=== PATIENT | female | born 1950 | race Two or more races ===

== ENCOUNTER → 2019-12-02 14:55 | Outpatient (BNVA) | payer MEDICARE, MEDICAID, SELFPAY | PROVIDERS: PCP Internal Medicine; Referring Provider Internal Medicine; Visit Provider Internal Medicine | DX: J44.9 Chronic obstructive pulmonary disease, unspecified (principal); Z79.899 Other long term (current) drug therapy | CPT/HCPCS: 99213 ==

== ENCOUNTER → 2020-07-19 15:43 | Outpatient (BNVA) | payer MEDICARE, MEDICAID, SELFPAY | PROVIDERS: PCP Internal Medicine; Visit Provider Internal Medicine | DX: J44.9 Chronic obstructive pulmonary disease, unspecified (principal); R06.00 Dyspnea, unspecified; Z79.899 Other long term (current) drug therapy | CPT/HCPCS: 99212 ==

== ENCOUNTER → 2020-12-13 14:41 | Outpatient (BNVA) | payer MEDICARE, MEDICAID, SELFPAY | PROVIDERS: PCP Internal Medicine; Visit Provider Internal Medicine | DX: J44.9 Chronic obstructive pulmonary disease, unspecified (principal) | CPT/HCPCS: 99212 ==

== ENCOUNTER 2021-04-26 17:47 | Outpatient (REF) | payer MEDICARE, MEDICAID, SELFPAY ==
--- NOTE | ~2021-04-26 | MR_ITS ---
EXAMINATION: MR KNEE WITHOUT CONTRAST, LEFT CLINICAL INFORMATION: 5 days severe knee pain. COMPARISON: X-ray of the the left knee September 2018. TECHNIQUE: MRI of the knee without contrast was performed using routine sequences on a high-field scanner. FINDINGS: MENISCI: Medial Meniscus: There is some subtle increased signal along the free edge of the posterior horn. Probable small surface tear of the free edge. Lateral Meniscus: There is a tiny focus of increased signal along the tibial articular surface of the body of the meniscus. Findings are suspicious but not definitive for a tear. There is also increased signal in the anterior horn extending to the femoral articular surface indicative of a meniscal tear. LIGAMENTS: Cruciate: Mucoid degeneration of the anterior cruciate ligament. PCL is intact. Collateral: Intact. EXTENSOR MECHANISM: Normal ARTICULAR CARTILAGE/BONE: Patellofemoral Compartment: Normal. Medial Compartment: Normal. Lateral Compartment: Normal. JOINT FLUID AND BURSAE: There is a mild joint effusion and a small Duncan's cyst. MR/MR knee LT wo con IMPRESSION: Probable tear along the free edge of the posterior horn of the medial meniscus. Tear of the anterior horn of the lateral meniscus and possible tear of the body. Mild joint effusion and a small Duncan's cyst. Mucoid degeneration of the anterior cruciate ligament.
== END 2021-04-26 17:48 | disposition home or self-care (01) ==
LOC: HO.MRI 17:47
PROVIDERS: PCP Registered Nurse Community Health; Visit Provider Registered Nurse Community Health
DX: M25.562 Pain in left knee (principal)
CPT/HCPCS: 73721

== ENCOUNTER 2021-05-29 08:01 | Outpatient (REF) | payer MEDICARE, MEDICAID, SELFPAY | END 2021-05-29 08:02 | disposition home or self-care (01) | LOC: HO.HOSX 08:01 | PROVIDERS: Visit Provider Physician Assistant | DX: Z13.89 Encounter for screening for other disorder (principal) ==

== ENCOUNTER 2021-08-08 07:47 | Outpatient (REF) | payer MEDICARE, MEDICAID, SELFPAY | END 2021-08-08 07:48 | disposition home or self-care (01) | LOC: HO.HOSX 07:47 | PROVIDERS: Visit Provider Physician Assistant | DX: Z13.89 Encounter for screening for other disorder (principal) ==

== ENCOUNTER → 2021-08-14 13:00 | Outpatient (BNVA) | payer MEDICARE, MEDICAID, SELFPAY | PROVIDERS: PCP Registered Nurse Community Health; Visit Provider Internal Medicine | DX: J44.9 Chronic obstructive pulmonary disease, unspecified (principal); R06.00 Dyspnea, unspecified; G47.33 Obstructive sleep apnea (adult) (pediatric); Z79.899 Other long term (current) drug therapy | CPT/HCPCS: 94010; 99212 ==

== ENCOUNTER 2021-10-04 14:20 | Outpatient (REF) | payer MEDICARE, MEDICAID, SELFPAY ==
--- NOTE | ~2021-10-04 | US_ITS ---
EXAMINATION: MM DIAGNOSTIC DIGITAL BREAST TOMOSYNTHESIS, BILATERAL US TARGETED RIGHT BREAST CLINICAL INFORMATION: Right breast mass. The lifetime risk of breast cancer based on the Tyrer-Cuzick Model is 5%. COMPARISON: Mammography: 02/01/2016 and studies dating back to 07/11/2011. TECHNIQUE: Digital breast tomosynthesis is performed in both the craniocaudal and mediolateral oblique views along with computer-aided detection (CAD). Synthesized 2-D images are generated from the tomosynthesis. Targeted right breast ultrasound. FINDINGS: The breasts are heterogeneously dense, which may obscure small masses (ACR BI-RADS breast composition Category c). There is seen to be some waxing and waning of bilateral breast densities consistent with known cysts. The palpable abnormality corresponds to a circumscribed approximately 5.1 x 4.1 x 4.6 cm mass about the medial aspect of the right breast. No suspicious grouping of microcalcifications is identified. Targeted right breast ultrasound demonstrated multiple cysts with the lesion associated with palpable area measuring approximately 3.6 x 3.9 x 3.5 cm in size. There is a smooth back-wall with increased through sound transmission. A few small echoes are seen moving within the cyst. Results are discussed with the patient at time of visit. US/US breast RT limited IMPRESSION: No mammographic evidence of malignancy. Bilateral breast cysts. ASSESSMENT: BI-RADS 2: Benign. RECOMMENDATION: Routine annual mammography screening. This patient's information was entered into a reminder system with a target due date for their next mammogram.
--- NOTE | ~2021-10-04 | MM_ITS ---
EXAMINATION: MM DIAGNOSTIC DIGITAL BREAST TOMOSYNTHESIS, BILATERAL US TARGETED BREAST, RIGHT CLINICAL INFORMATION: Right breast mass. The lifetime risk of breast cancer based on the Tyrer-Cuzick Model is 5%. COMPARISON: Mammography: 02/01/2016 and studies dating back to 07/11/2011. TECHNIQUE: Digital breast tomosynthesis is performed in both the craniocaudal and mediolateral oblique views along with computer-aided detection (CAD). Synthesized 2D images are generated from the tomosynthesis. Targeted right breast ultrasound. FINDINGS: The breasts are heterogeneously dense, which may obscure small masses (ACR BI-RADS breast composition Category c). There is seen to be some waxing and waning of bilateral breast densities consistent with known cysts. The palpable abnormality corresponds to a circumscribed approximately 5.1 x 4.1 x 4.6 cm mass about the medial aspect of the right breast. No suspicious grouping of microcalcifications is identified. Targeted right breast ultrasound demonstrated multiple cysts with the lesion associated with the palpable area measuring approximately 3.6 x 3.9 x 3.5 cm in size. There is a smooth back wall with increased through sound transmission. A few small echoes are seen moving within the cyst. Results are discussed with the patient at time of visit. MM/MM tomosynthesis diagnostic BI IMPRESSION: No mammographic evidence of malignancy. Bilateral breast cysts. ASSESSMENT: BI-RADS 2: Benign. RECOMMENDATION: Routine annual mammography screening. This patient's information was entered into a reminder system with a target due date for their next mammogram.
== END 2021-10-04 14:21 | disposition home or self-care (01) ==
LOC: HO.MAMMO 14:20
PROVIDERS: PCP Internal Medicine; Visit Provider Internal Medicine
DX: N63.15 Unspecified lump in the right breast, overlapping quadrants (principal); Z80.3 Family history of malignant neoplasm of breast
CPT/HCPCS: 76642; 77062; 77066

== ENCOUNTER 2022-01-15 11:26 | Outpatient (REF) | payer MEDICARE, MEDICAID, SELFPAY ==
--- NOTE | ~2022-01-15 | XR_ITS ---
EXAMINATION: XR KNEE, RIGHT CLINICAL INFORMATION: Pain COMPARISON: None TECHNIQUE: Four views of the right knee. FINDINGS: Bones and soft tissues are normal. No fracture or joint effusion. Alignment is anatomic. Joint spaces are well maintained. No abnormal soft tissue calcification. XR/XR knee RT 4V IMPRESSION: Normal right knee.
== END 2022-01-15 11:27 | disposition home or self-care (01) ==
LOC: HO.XRAY 11:26
PROVIDERS: PCP Internal Medicine; Visit Provider Emergency Medicine
DX: M25.561 Pain in right knee (principal)
CPT/HCPCS: 73564

== ENCOUNTER → 2022-05-22 13:42 | Outpatient (BNVA) | payer MEDICARE, MEDICAID, SELFPAY | PROVIDERS: PCP Internal Medicine; Visit Provider Internal Medicine | DX: J44.9 Chronic obstructive pulmonary disease, unspecified (principal) | CPT/HCPCS: 99212 ==

== ENCOUNTER 2022-11-27 11:34 | Outpatient (REF) | payer MEDICARE, MEDICAID, SELFPAY | END 2022-11-27 11:35 | disposition home or self-care (01) | LOC: HO.HHCX 11:34 | PROVIDERS: Visit Provider Nurse Practitioner Family | DX: Z13.89 Encounter for screening for other disorder (principal) | CPT/HCPCS: 73630 ==

== ENCOUNTER 2022-11-27 11:56 | Outpatient (REF) | payer MEDICARE, MEDICAID, SELFPAY | END 2022-11-27 11:57 | disposition home or self-care (01) | LOC: HO.HHCL 11:56 | PROVIDERS: Visit Provider Nurse Practitioner Family | DX: M79.671 Pain in right foot (principal) | CPT/HCPCS: 36415; 73630; 84550 ==

== ENCOUNTER 2022-11-28 15:27 | Outpatient (AMB) | payer MEDICARE, MEDICAID, SELFPAY ==
[2022-11-28 15:37] VITALS: BP 130/62; PULSE 75; O2SAT 95; BMI 34.6
--- NOTE | 2022-11-28 15:37 | MHC.OFFVIS ---
Intake Vital Signs 11/28/22 15:37 Height 5 ft Weight 177 lb BMI 34.6 BP 130/62 Blood Pressure Location Lt brachial Position Sitting Pulse 75 Pulse Source Pulse Oximeter Pulse Oximetry (%) 95 Oxygen Delivery Method Room Air Intake Visit Reasons: COPD Intake Note: pt is here for follow up and states she is feeling good, put on prednisone today for gout of foot Marketing Outreach Coordinator Required: No Allergies No Known Allergies [No Known Allergies*] Allergy (Verified 11/28/22 16:03) Medication List - Last Reconciled 11/28/22 by Ginny Carranza MD albuterol sulfate 90 mcg/actuation 2 puffs PO Q6H PRN albuterol sulfate mg inhalation Q4H PRN atorvastatin 20 mg PO BEDTIME celecoxib 200 mg PO DAILY PRN diclofenac sodium 50 mg PO BID diclofenac sodium 1% grams topical diltiazem HCl 300 mg PO DAILY fluoxetine 20 mg PO QAM fluticasone propion-salmeterol 250-50 mcg/dose (Advair Diskus) 1 inh inhalation BID 30 days ibuprofen 600 mg PO TID PRN Incruse Ellipta 62.5 mcg/actuation (umeclidinium) 1 inh inhalation DAILY NS levothyroxine 25 mcg PO DAILY loratadine 10 mg PO DAILY PRN losartan 50 mg PO DAILY meloxicam 15 mg PO QAM methocarbamol 750 mg PO Q12H PRN quetiapine 50 mg PO BEDTIME Do you need a note to return to daycare/school/sports/work: No HPI COPD HPI Details THIS 72 YEARS OLD VERY PLEASANT FEMALE, IS HERE FOR FOLLOW-UP AFTER 6 MONTHS. SHE HAS MODERATELY SEVERE CHRONIC OBSTRUCTIVE PULMONARY DISEASE. SHE NEVER SMOKED IN HER LIFE. DOING VERY WELL ON HER CURRENT REGIMEN. SHE DENIES ANY EPISODES OF COUGH OR WHEEZING. SHE DOES GET SHORT OF BREATH IF SHE CLIMBS STAIRS OR WALKS UP HILL. LUCKILY SHE HAS HAD NO ACUTE EXACERBATION IN THE LAST 6 MONTHS [facility] Medical History Dyspnea on exertion COPD (chronic obstructive pulmonary disease) Social History Patient Tobacco Use Status: Never used Tobacco Review of Systems Const All systems reviewed & are unremarkable except as noted in HPI and below Eyes Reports no additional complaints ENT Reports no additional complaints Card Denies chest pain, Denies irregular heart rhythm and Denies leg edema Resp Reports as per HPI GI Reports no additional complaints Reports no additional complaints Musc Reports no additional complaints Skin/Breast Reports system reviewed and no additional complaints, except as documented Neuro Reports no additional complaints Psych Reports no additional complaints Physical Exam Vital Signs: Last Vital Signs Pulse 75 11/28/22 15:37 BP 130/62 11/28/22 15:37 Pulse Ox 95 11/28/22 15:37 Oxygen Delivery Method Room Air 11/28/22 15:37 BMI result Body Mass Index 34.6 Const General: healthy appearing, comfortable, no acute distress, alert and awake Orientation/consciousness: patient oriented x3 HEENT Head: Yes normal to inspection General nose exam: No nasal polyps present and No nasal discharge present Face and sinus: Yes sinuses nontender Mouth: oropharynx normal Throat: Yes posterior oropharynx normal Eyes General: appearance normal, both eyes and all related structures Neck Neck: Yes normal visual inspection, Yes no lymphadenopathy, Yes trachea midline and Yes no JVD Thyroid: Thyroid normal Chest Chest palpation & inspection: normal inspection of the chest, normal palpation of entire chest wall and no tenderness Resp Other: PERCUSSION NOTE RESONANT, BREATH SOUNDS ARE DISTANT WITH PROLONGED EXPIRATORY PHASE. CLEAR ON AUSCULTATION, NO WHEEZES OR RHONCHI ARE HEARD. Cardio Palpation: normal PMI Rate: regular rate Rhythm: regular rhythm Heart sounds: no gallops and no murmurs Peripheral pulses: Peripheral pulses 2+ throughout GI Palpation (GI): Soft to palpation, nontender, No hepatosplenomegaly present and no masses Auscultation: normal bowel sounds Back/Spine/Pelvis Thoracic/Lumbar Spine: thoracic and lumbar spine normal to inspection Skin General skin exam: no rashes or lesions noted Neuro General: patient oriented x3 and no focal motor deficits Cranial nerves: Yes CN's II-XII intact bilaterally Extrem General: Yes normal to inspection, Yes no clubbing, cyanosis or edema and Yes no calf tenderness Psych Appearance: grossly normal Speech and movement: Normal speech and movement present Assessment & Plan Assessment & Plan (1) COPD (chronic obstructive pulmonary disease): Comment: SHE DOES HAVE MODERATELY SEVERE CHRONIC OBSTRUCTIVE PULMONARY DISEASE. HAS REMAINED STABLE AND CONTROLLED WITH THE CURRENT MEDS. ADVISED TO CONTINUE: [place] : INCRUSE Ellipta 1 INHALATION DAILY. ADVAIR 250-51 INHALATION B.I.D. ALBUTEROL HFA 2 PUFFS Q 4-6 HOURS P.R.N.. SHE WAS EDUCATED TO AVOID USING THE ALBUTEROL INHALER TOO FREQUENTLY. USE ONLY IF SHE STARTS HAVING ATTACK OF WHEEZING AT REST. RV 6 MONTHS Code(s): J44.9 - Chronic obstructive pulmonary disease, unspecified (2) Dyspnea on exertion: Comment: HER SHORTNESS OF BREATH ON EXERTION IS MILD AND RELATED TO COPD. Code(s): R06.00 - Dyspnea, unspecified Coding Level of Care Code Est Pt Level 3 (67954) Diagnoses COPD (chronic obstructive pulmonary disease) J44.9 Dyspnea on exertion R06.00
== END 2022-11-28 15:59 | disposition home or self-care (01) ==
PROVIDERS: PCP Internal Medicine; Visit Provider Internal Medicine
DX: J44.9 Chronic obstructive pulmonary disease, unspecified (principal); R06.00 Dyspnea, unspecified
CPT/HCPCS: 99213

== ENCOUNTER → 2022-11-28 15:27 | Outpatient (BNVA) | payer MEDICARE, MEDICAID, SELFPAY | PROVIDERS: PCP Internal Medicine; Visit Provider Internal Medicine | DX: J44.9 Chronic obstructive pulmonary disease, unspecified (principal); R06.00 Dyspnea, unspecified | CPT/HCPCS: 99212 ==

== ENCOUNTER 2023-04-11 11:09 | Outpatient (REF) | payer MEDICARE, MEDICAID, SELFPAY ==
[2023-04-11 13:31] LABS: Uric Acid 6.3 mg/dL (2.4-5.7)
== END 2023-04-11 11:10 | disposition home or self-care (01) ==
LOC: HO.HHCL 11:09
PROVIDERS: Visit Provider Internal Medicine
DX: M10.071 Idiopathic gout, right ankle and foot (principal)
CPT/HCPCS: 36415; 84550

== ENCOUNTER 2023-04-12 13:50 | Outpatient (REF) | payer MEDICARE, MEDICAID, SELFPAY ==
--- NOTE | ~2023-04-12 | XR_ITS ---
EXAMINATION: XR LUMBOSACRAL SPINE WITH OBLIQUES CLINICAL INFORMATION: Low back pain with right sciatica. Denies injury. COMPARISON: None available. TECHNIQUE: AP, both oblique, and lateral views of the lumbar spine. Lateral view of the lumbosacral junction. FINDINGS: There is normal lumbar lordosis. The vertebral heights, alignment and disc heights are normal. There is loss of L4-L5 and L5/S1 disc heights with mild spondylosis. No visible acute fracture, dislocation or lytic process seen. The SI joints are symmetrical and normal. On oblique views there is no pars defect or listhesis. The soft tissues are normal. XR/XR lumbar spine 4V min IMPRESSION: Mild degenerative disc changes L4-L5 and L5-S1 disc levels. No visible acute fracture, dislocation or subluxation seen.
== END 2023-04-12 13:51 | disposition home or self-care (01) ==
LOC: HO.HHCX 13:50
PROVIDERS: Visit Provider Internal Medicine Geriatric Medicine
DX: M54.41 Lumbago with sciatica, right side (principal)
CPT/HCPCS: 72110

== ENCOUNTER 2023-06-25 15:31 | Outpatient (AMB) | payer MEDICARE, MEDICAID, SELFPAY ==
--- NOTE | 2023-06-25 15:49 | A.OFFVIS_ITS ---
Vital Signs 06/25/23 15:50 Height 5 ft Weight 180 lb BMI 35.2 BP 134/62 Blood Pressure Location Lt brachial Position Sitting Pulse 88 Pulse Source Pulse Oximeter Pulse Oximetry (%) 95 Oxygen Delivery Method Room Air Intake Visit Reasons: copd Intake Note: pt is here for follow up and states she does get short of breath with walking and climbing stairs. She needs a letter for housing requesting a 1st floor due to copd and difficulty climbing the stairs. 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 Allergies No Known Allergies [No Known Allergies*] Allergy (Verified 06/25/23 16:22) Medication List - Last Reconciled 06/25/23 by Ginny Carranza MD albuterol sulfate 90 mcg/actuation 2 puffs PO Q6H PRN albuterol sulfate mg inhalation Q4H PRN atorvastatin 20 mg PO BEDTIME celecoxib 200 mg PO DAILY PRN diclofenac sodium 50 mg PO BID diclofenac sodium 1% grams topical diltiazem HCl CD 300 mg PO DAILY fluoxetine 20 mg PO QAM fluticasone propion-salmeterol 250-50 mcg/dose (Advair Diskus) 1 inh inhalation BID 30 days ibuprofen 600 mg PO TID PRN Incruse Ellipta 62.5 mcg/actuation (umeclidinium) 1 inh inhalation DAILY NS levothyroxine 25 mcg PO DAILY loratadine 10 mg PO DAILY PRN losartan 50 mg PO DAILY meloxicam 15 mg PO QAM methocarbamol 750 mg PO Q12H PRN quetiapine 50 mg PO BEDTIME Do you need a note to return to daycare/school/sports/work: No HPI HPI copd: Details: This 72 years old very pleasant female, is here for. 6 months follow-up Her main complaint is getting short of breath on minimal exertion, especially if she has to climb stairs. She also has mild intermittent cough without much expectoration . She denies any wheezing attacks. She is moderately obese and also has generalized arthritis, hypertension, hyperlipidemia. She is nonsmoker. [facility] Medical History Dyspnea on exertion COPD (chronic obstructive pulmonary disease) Social History Patient Tobacco Use Status: Never used Tobacco Review of Systems Const All systems reviewed & are unremarkable except as noted in HPI and below Eyes Reports no additional complaints ENT Reports no additional complaints Card Denies chest pain, Denies irregular heart rhythm and Denies leg edema Resp Reports as per HPI GI Reports no additional complaints Reports no additional complaints Musc Reports no additional complaints Skin/Breast Reports system reviewed and no additional complaints, except as documented Neuro Reports no additional complaints Psych Reports no additional complaints Physical Exam Vital Signs: Last Vital Signs Pulse 88 06/25/23 15:50 BP 134/62 06/25/23 15:50 Pulse Ox 95 06/25/23 15:50 Oxygen Delivery Method Room Air 06/25/23 15:50 BMI result Body Mass Index 35.2 Const General: healthy appearing, comfortable, no acute distress, alert and awake Orientation/consciousness: patient oriented x3 HEENT Head: Yes normal to inspection General nose exam: No nasal polyps present and No nasal discharge present Face and sinus: Yes sinuses nontender Mouth: oropharynx normal Throat: Yes posterior oropharynx normal Eyes General: appearance normal, both eyes and all related structures Neck Neck: Yes normal visual inspection, Yes no lymphadenopathy, Yes trachea midline and Yes no JVD Thyroid: Thyroid normal Chest Chest palpation & inspection: normal inspection of the chest, normal palpation of entire chest wall and no tenderness Resp Other: PERCUSSION NOTE RESONANT, BREATH SOUNDS ARE DISTANT WITH PROLONGED EXPIRATORY PHASE. CLEAR ON AUSCULTATION, NO WHEEZES OR RHONCHI ARE HEARD. Cardio Palpation: normal PMI Rate: regular rate Rhythm: regular rhythm Heart sounds: no gallops and no murmurs Peripheral pulses: Peripheral pulses 2+ throughout GI Palpation (GI): Soft to palpation, nontender, No hepatosplenomegaly present and no masses Auscultation: normal bowel sounds Back/Spine/Pelvis Thoracic/Lumbar Spine: thoracic and lumbar spine normal to inspection Skin General skin exam: no rashes or lesions noted Neuro General: patient oriented x3 and no focal motor deficits Cranial nerves: Yes CN's II-XII intact bilaterally Extrem General: Yes normal to inspection, Yes no clubbing, cyanosis or edema and Yes no calf tenderness Psych Appearance: grossly normal Speech and movement: Normal speech and movement present Assessment & Plan Assessment & Plan (1) COPD (chronic obstructive pulmonary disease): Comment: SHE DOES HAVE MODERATELY SEVERE CHRONIC OBSTRUCTIVE PULMONARY DISEASE. HAS REMAINED STABLE AND CONTROLLED WITH THE CURRENT MEDS. ADVISED TO CONTINUE PRESENT MEDICAL REGIMEN. Code(s): J44.9 - Chronic obstructive pulmonary disease, unspecified Category: Medical Plan: [place] : INCRUSE Ellipta 1 INHALATION DAILY. ADVAIR 250-51 INHALATION B.I.D. ALBUTEROL HFA 2 PUFFS Q 4-6 HOURS P.R.N.. SHE WAS EDUCATED TO AVOID USING THE ALBUTEROL INHALER TOO FREQUENTLY. USE ONLY IF SHE STARTS HAVING ATTACK OF WHEEZING AT REST. RV 6 MONTHS (2) Dyspnea on exertion: Comment: HER SHORTNESS OF BREATH ON EXERTION IS MILD AND RELATED TO COPD WELL OBESITY Code(s): R06.00 - Dyspnea, unspecified Category: Medical Plan: EXPLAINED ADVISED TO LOSE SOME WEIGHT . WHICH MAY BE DIFFICULT FOR HER DO DEEP BREATHING EXERCISES 2 TO 3 TIMES A DAY. NOTE GIVEN FOR THE HOUSING AUTHORITY THAT SHE SHOULD GET AN APARTMENT ON THE LEVEL GROUND. Coding Level of Care Code Est Pt Level 4 (19065) Diagnoses COPD (chronic obstructive pulmonary disease) J44.9 Dyspnea on exertion R06.00
[2023-06-25 15:50] VITALS: BP 134/62; PULSE 88; O2SAT 95; BMI 35.2
== END 2023-06-25 16:18 | disposition home or self-care (01) ==
PROVIDERS: PCP Internal Medicine; Visit Provider Internal Medicine
DX: J44.9 Chronic obstructive pulmonary disease, unspecified (principal); R06.00 Dyspnea, unspecified
CPT/HCPCS: 99214

== ENCOUNTER → 2023-06-25 15:31 | Outpatient (BNVA) | payer MEDICARE, MEDICAID, SELFPAY | PROVIDERS: PCP Internal Medicine; Visit Provider Internal Medicine | DX: J44.9 Chronic obstructive pulmonary disease, unspecified (principal); R06.00 Dyspnea, unspecified; Z79.899 Other long term (current) drug therapy | CPT/HCPCS: 99212 ==

== ENCOUNTER 2023-10-23 13:11 | Outpatient (REF) | payer MEDICARE, MEDICAID, SELFPAY ==
[2023-10-23 13:52] LABS: Leukocytes Stool Qualitative NEGATIVE (NEGATIVE)
[2023-10-28 14:38] LABS: Fecal Fat Qualitative Normal (Normal)
== END 2023-10-23 13:12 | disposition home or self-care (01) ==
LOC: HO.LNP 13:11
PROVIDERS: Visit Provider Internal Medicine
DX: R19.7 Diarrhea, unspecified (principal)
CPT/HCPCS: 82705; 87338; 89055

== ENCOUNTER → 2023-11-06 15:00 | Outpatient (REF) | payer MEDICARE, MEDICAID, SELFPAY ==
--- NOTE | 2023-11-06 15:03 | CA_ITS ---
Transthoracic Echocardiogram Patient (Last, First, Middle): Jaqui Segal, Gender: Female Date of : 1950 Age: 73 Procedure Date: 11/06/2023 Procedure Type: Transthoracic Echocardiogram Location: OP Height: 157.48 cm Weight: 81.65 kg BSA: 1.83 m2 Heart Rate: 74 bpm BP: 128 / 70 mmHg Insurance Job Titles: SB Referring MD: Polly Toribio MD Climatology Teacher: Fabrizio Baptiste MD Symptoms: ESPINOSA R06.09 Study Quality: Fair ECG Rhythm: Sinus Conclusions: - 1. Hyperdynamic LV ejection fraction greater than 70% with impaired relaxation filling pattern 2. Mild aortic regurgitation 3. Normal measured RV systolic pressure 4. Mildly dilated ascending aorta at 4.2 cm 5. No gross pericardial effusion Findings Left Ventricle Normal left ventricular cavity size. There is normal left ventricular wall thickness. The left ventricular systolic function is hyperdynamic. The visually estimated ejection fraction is >70%. Spectral Doppler is indicative of an impaired relaxation filling pattern. Right Ventricle Normal right ventricular cavity size and systolic function. Atria The left atrium is normal in size. Interatrial shunt cannot be excluded. The right atrium is normal in size. Aortic Valve There is mild calcification of the aortic valve. There is no aortic valve stenosis. There is mild aortic valve regurgitation. Mitral Valve There is mild anterior and posterior mitral leaflet thickening. There is trace mitral valve regurgitation. There is no mitral valve stenosis. Pulmonic Valve The pulmonic valve was not well visualized. Tricuspid Valve Likely normal tricuspid valve structure and function. There is trace tricuspid valve regurgitation. The right ventricular systolic pressure is normal. The right ventricular systolic pressure is 25 mmHg. Normal right atrial pressure. There is no evidence of pulmonary hypertension. Great Vessels The pulmonary artery was not well visualized. There is mild dilatation of the ascending aorta measuring 4.20 cm. There is no evidence of plaque in the aorta. Venous The inferior vena cava is normal in size and collapses greater than 50% with inspiration. Pericardium/Pleural There is no evidence of pericardial effusion. Prior Study Comparison Changes noted compared to prior study dated: 06/13/2017. RV systolic pressure is measured to be within normal limits. Ascending aorta is mildly dilated on this study Measurements 2D Linear Measurements IVSd: 0.82 0.6-0.9/0.6-1.0 cm LVIDd: 4.81 3.9-5.3/4.2-5.9 cm LVIDd Index: 2.63 2.4-3.2/2.2-3.1 cm/m2 LVIDs: 2.74 2.0-3.6 cm LVPWd: 0.82 0.7-1.1 cm LA Diam: 4.40 2.7-3.8/3.0-4.0 cm LAIDs Index: 2.40 1.5-2.3 cm/m2 LV Mass: 163.07 67-162/88-224 g LV Mass Index: 89.11 43-95/49-115 g/m2 LVOT Diam: 1.90 3.0+(-)1.3 cm 2D Systolic Function EF 4C: 69.30 >55% EF 2C: 80.70 >55% EF BiP: 77.10 >55% Mitral Valve MV Pk E: 0.93 MV PK A: 1.06 MV Decel Time: 189.00 E/A: 0.90 E'Lateral: 7.29 E'Medial: 5.23 E/E' Med: 17.70 E/E' Lat: 12.70 PHT: 55.00 MVA PHT: 4.00 Decel [place]: 4.89 Aortic Valve AoV Pk Dexter: 1.98 AoV Mn Dexter: 1.32 AoV VTI: 0.36 AoV Pk Grad: 16.00 Aov Mn Grad: 9.00 DOMENICO Cont.VTI: 2.17 LVOT LVOT Pk Dexter: 1.55 LVOT Mn Dexter: 0.96 LVOT VTI: 0.28 LVOT Pk Grad: 10.00 LVOT Mn Grad: 5.00 LVOT Diam: 1.90 LVOT Area: 2.84 Diastolic Function MV Pk E: 0.93 MV Pk A: 1.06 E/A: 0.90 E'Medial: 5.23 E/E' Med: 17.70 E' Laterial: 7.29 E/E' Lat: 12.70 Right Ventricle TAPSE (mm): 26.40 TVS' Dexter: 17.50 Tricuspid Valve TR Pk Dexter: 2.37 TR Pk Grad: 22.00 RA Press: 3.00 RVSP: 25.00 Great Vessels Aorta Sinus of Valsalva: 3.10 2.0-3.5 cm Ao Asc: 4.20 2.1-3.4 cm Pulmonary Valve PV Pk Dexter: 1.43 PV Min Dexter: 0.98 Peak PV Grad: 8.00 PV Mn Grad: 5.00 Updated in Other Vendor System with Status of Final Fabrizio Baptiste MD electronically signed on 11/06/2023 6:29:46 PM with status of Final
== END ==
LOC: HO.CARD 15:00
PROVIDERS: PCP Internal Medicine; Visit Provider Internal Medicine
DX: R06.09 Other forms of dyspnea (principal)
CPT/HCPCS: 93306

== ENCOUNTER → 2023-11-06 15:03 | Outpatient (BNV) | payer MEDICARE, MEDICAID, SELFPAY | PROVIDERS: PCP Internal Medicine; Visit Provider Internal Medicine Cardiovascular Disease | DX: I35.1 Nonrheumatic aortic (valve) insufficiency (principal) | CPT/HCPCS: 93306 ==

== ENCOUNTER 2023-12-30 15:25 | Outpatient (AMB) | payer MEDICARE, MEDICAID, SELFPAY ==
--- NOTE | 2023-12-30 15:32 | A.OFFVIS_ITS ---
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 Name: Geena Marley Allergies No Known Allergies [No Known Allergies*] Allergy (Verified 12/30/23 15:43) Medication List - Last Reconciled 12/30/23 by Ginny Carranza MD albuterol sulfate 90 mcg/actuation 2 puffs PO Q6H PRN albuterol sulfate mg inhalation Q4H PRN atorvastatin 20 mg PO BEDTIME celecoxib 200 mg PO DAILY PRN diclofenac sodium 50 mg PO BID diclofenac sodium 1% grams topical diltiazem HCl CD 300 mg PO DAILY fluoxetine 20 mg PO QAM fluticasone propion-salmeterol 250-50 mcg/dose (Advair Diskus) 1 inh inhalation BID 30 days ibuprofen 600 mg PO TID PRN Incruse Ellipta 62.5 mcg/actuation (umeclidinium) 1 inh inhalation DAILY NS levothyroxine 25 mcg PO DAILY loratadine 10 mg PO DAILY PRN losartan 50 mg PO DAILY meloxicam 15 mg PO QAM methocarbamol 750 mg PO Q12H PRN quetiapine 50 mg PO BEDTIME Do you need a note to return to daycare/school/sports/work: No HPI HPI COPD: Details: This 73 years old female is here for 6 months follow-up for her COPD. She has remained very stable without any acute infection or exacerbation. Uses her inhalers regularly and hardly needs to use albuterol. She is nonsmoker for the last 8 years. [facility] Medical History Dyspnea on exertion COPD (chronic obstructive pulmonary disease) Social History Patient Tobacco Use Status: Never used Tobacco Review of Systems Const All systems reviewed & are unremarkable except as noted in HPI and below Eyes Reports no additional complaints ENT Reports no additional complaints Card Denies chest pain, Denies irregular heart rhythm and Denies leg edema Resp Reports as per HPI GI Reports no additional complaints Reports no additional complaints Musc Reports no additional complaints Skin/Breast Reports system reviewed and no additional complaints, except as documented Neuro Reports no additional complaints Psych Reports no additional complaints Physical Exam Const General: healthy appearing, comfortable, no acute distress, alert and awake Orientation/consciousness: patient oriented x3 HEENT Head: Yes normal to inspection General nose exam: No nasal polyps present and No nasal discharge present Face and sinus: Yes sinuses nontender Mouth: oropharynx normal Throat: Yes posterior oropharynx normal Eyes General: appearance normal, both eyes and all related structures Neck Neck: Yes normal visual inspection, Yes no lymphadenopathy, Yes trachea midline and Yes no JVD Thyroid: Thyroid normal Chest Chest palpation & inspection: normal inspection of the chest, normal palpation of entire chest wall and no tenderness Resp Other: PERCUSSION NOTE RESONANT, BREATH SOUNDS ARE DISTANT WITH PROLONGED EXPIRATORY PHASE. CLEAR ON AUSCULTATION, NO WHEEZES OR RHONCHI ARE HEARD. Cardio Palpation: normal PMI Rate: regular rate Rhythm: regular rhythm Heart sounds: no gallops and no murmurs Peripheral pulses: Peripheral pulses 2+ throughout GI Palpation (GI): Soft to palpation, nontender, No hepatosplenomegaly present and no masses Auscultation: normal bowel sounds Back/Spine/Pelvis Thoracic/Lumbar Spine: thoracic and lumbar spine normal to inspection Skin General skin exam: no rashes or lesions noted Neuro General: patient oriented x3 and no focal motor deficits Cranial nerves: Yes CN's II-XII intact bilaterally Extrem General: Yes normal to inspection, Yes no clubbing, cyanosis or edema and Yes no calf tenderness Psych Appearance: grossly normal Speech and movement: Normal speech and movement present Assessment & Plan Assessment & Plan (1) COPD (chronic obstructive pulmonary disease): Comment: SHE DOES HAVE MODERATELY SEVERE CHRONIC OBSTRUCTIVE PULMONARY DISEASE. HAS REMAINED STABLE AND CONTROLLED WITH THE CURRENT MEDS. ADVISED TO CONTINUE PRESENT MEDICAL REGIMEN. Code(s): J44.9 - Chronic obstructive pulmonary disease, unspecified Category: Medical Plan: Continue to use Advair Diskus 250-51 inhalation b.i.d. Incruse Ellipta 1 inhalation daily Albuterol HFA 2 puffs Q 6 hours p.r.n. Coding Level of Care Code Est Pt Level 3 (30345) Diagnoses COPD (chronic obstructive pulmonary disease) J44.9
[2023-12-30 15:34] VITALS: BP 122/62; PULSE 73; O2SAT 93; BMI 34.4
== END 2023-12-30 15:48 | disposition home or self-care (01) ==
PROVIDERS: PCP Internal Medicine; Visit Provider Internal Medicine
DX: J44.9 Chronic obstructive pulmonary disease, unspecified (principal)
CPT/HCPCS: 99213

== ENCOUNTER → 2023-12-30 15:25 | Outpatient (BNVA) | payer MEDICARE, MEDICAID, SELFPAY | PROVIDERS: PCP Internal Medicine; Visit Provider Internal Medicine | DX: J44.9 Chronic obstructive pulmonary disease, unspecified (principal) | CPT/HCPCS: 99212 ==

== ENCOUNTER 2024-09-08 15:18 | Outpatient (AMB) | payer MEDICARE, MEDICAID, SELFPAY ==
--- NOTE | 2024-09-08 15:38 | A.OFFVIS_ITS ---
Vital Signs 09/08/24 15:39 Height 5 ft Weight 175 lb BMI 34.2 BP 147/72 H Blood Pressure Location Lt brachial Position Sitting Pulse 71 Pulse Source Pulse Oximeter Pulse Oximetry (%) 91 L Oxygen Delivery Method Room Air Intake Visit Reasons: copd Intake Note: pt is here for follow up and states she is feeling good, Senior Financial Reporting Accountant Required: Yes Senior Financial Reporting Accountant Services: Senior Financial Reporting Accountant Present Senior Financial Reporting Accountant Name: pawel (OA) Allergies No Known Allergies (No Known Allergies*) Allergy (Verified 09/08/24 15:53) Medication List - Last Reconciled 09/08/24 by Ginny Carranza MD albuterol sulfate 90 mcg/actuation 2 puffs PO Q6H PRN albuterol sulfate mg inhalation Q4H PRN atorvastatin 20 mg PO BEDTIME celecoxib 200 mg PO DAILY PRN diclofenac sodium 50 mg PO BID diclofenac sodium 1% grams topical diltiazem HCl CD 300 mg PO DAILY fluoxetine 20 mg PO QAM fluticasone propion-salmeterol 250-50 mcg/dose (Advair Diskus) 1 inh inhalation BID 30 days ibuprofen 600 mg PO TID PRN Incruse Ellipta 62.5 mcg/actuation (umeclidinium) 1 inh inhalation DAILY NS levothyroxine 25 mcg PO DAILY loratadine 10 mg PO DAILY PRN losartan 50 mg PO DAILY meloxicam 15 mg PO QAM methocarbamol 750 mg PO Q12H PRN quetiapine 50 mg PO BEDTIME Do you need a note to return to daycare/school/sports/work: No HPI HPI copd: Details: THIS 73 YEARS OLD 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 SHE STATES THAT SHE HAS BEEN DOING VERY WELL EXCEPT FOR MILD INTERMITTENT COUGH. SHE HAS HAD NO MAJOR RESPIRATORY INFECTION. CONTINUES TO USE HER INHALERS REGULARLY. ONLY MILD SHORTNESS OF BREATH IF SHE CLIMBS STAIRS BUT ON THE LEVEL GROUND SHE CAN WALK WITHOUT ANY PROBLEM. [facility] Medical History Dyspnea on exertion COPD (chronic obstructive pulmonary disease) Social History Patient Tobacco Use Status: Never used Tobacco Review of Systems Const All systems reviewed & are unremarkable except as noted in HPI and below Eyes Reports no additional complaints ENT Reports no additional complaints Card Denies chest pain, Denies irregular heart rhythm and Denies leg edema Resp Reports as per HPI GI Reports no additional complaints Reports no additional complaints Musc Reports no additional complaints Skin/Breast Reports system reviewed and no additional complaints, except as documented Neuro Reports no additional complaints Psych Reports no additional complaints Physical Exam Vital Signs: Last Vital Signs Pulse 71 09/08/24 15:39 BP 147/72 H 09/08/24 15:39 Pulse Ox 91 L 09/08/24 15:39 Oxygen Delivery Method Room Air 09/08/24 15:39 BMI result Body Mass Index 34.2 Const General: healthy appearing, comfortable, no acute distress, alert and awake Orientation/consciousness: patient oriented x3 HEENT Head: Yes normal to inspection General nose exam: No nasal polyps present and No nasal discharge present Face and sinus: Yes sinuses nontender Mouth: oropharynx normal Throat: Yes posterior oropharynx normal Eyes General: appearance normal, both eyes and all related structures Neck Neck: Yes normal visual inspection, Yes no lymphadenopathy, Yes trachea midline and Yes no JVD Thyroid: Thyroid normal Chest Chest palpation & inspection: normal inspection of the chest, normal palpation of entire chest wall and no tenderness Resp Other: PERCUSSION NOTE RESONANT, BREATH SOUNDS ARE DISTANT WITH PROLONGED EXPIRATORY PHASE. CLEAR ON AUSCULTATION, NO WHEEZES OR RHONCHI ARE HEARD. Cardio Palpation: normal PMI Rate: regular rate Rhythm: regular rhythm Heart sounds: no gallops and no murmurs Peripheral pulses: Peripheral pulses 2+ throughout GI Palpation (GI): Soft to palpation, nontender, No hepatosplenomegaly present and no masses Auscultation: normal bowel sounds Back/Spine/Pelvis Thoracic/Lumbar Spine: thoracic and lumbar spine normal to inspection Skin General skin exam: no rashes or lesions noted Neuro General: patient oriented x3 and no focal motor deficits Cranial nerves: Yes CN's II-XII intact bilaterally Extrem General: Yes normal to inspection, Yes no clubbing, cyanosis or edema and Yes no calf tenderness Psych Appearance: grossly normal Speech and movement: Normal speech and movement present Assessment & Plan Assessment & Plan (1) COPD (chronic obstructive pulmonary disease): Comment: SHE DOES HAVE MODERATELY SEVERE CHRONIC OBSTRUCTIVE PULMONARY DISEASE. HAS REMAINED STABLE AND CONTROLLED WITH THE CURRENT MEDS. Code(s): J44.9 - Chronic obstructive pulmonary disease, unspecified Category: Medical Plan: ADVISED TO CONTINUE USING: INCRUSE ELLIPTA 1 INHALATION DAILY ADVAIR DISKUS 250-50 1 INHALATION B.I.D. ALBUTEROL HFA 2 PUFFS Q 6 HOURS ONLY P.R.N. Coding Level of Care Code Est Pt Level 3 (54024) Diagnoses COPD (chronic obstructive pulmonary disease) J44.9
[2024-09-08 15:39] VITALS: BP 147/72; PULSE 71; O2SAT 91; BMI 34.2
--- OUTSIDE RECORDS SUMMARY | 2024-09-08 16:13 | XMS_ITS | Clinical Summary ---
Author Organization [facility] Address [id number] [place] [id number] Care Team Providers Care Catshovel Driver Name Role Phone Unavailable Primary Care Provider Unavailabl e Social History Tobacco Use Types Packs/Day Years Used Date Smoking Tobacco: Never Assessed Comments Unknown Sex and Gender Information Value Date Recorded Sex Assigned at Not on file Legal Sex Female 6:13 PM EST Gender Identity Not on file Sexual Orientation Not on file Plan of Treatment Health Maintenance Due Date Last Done Comments Breast Cancer Screening 1950 DTaP,Tdap,and Td Vaccines (1 - Tdap) 11/04/1971 Pneumococcal Vaccine: 50+ Ye ars (1 of 1 - PCV) 2002 Zoster Vaccines (1 of 2) 2002 COVID-19 Vaccine (1 - 2023-2 5 season) 2023 Depression Screening 02/19/2024 Influenza Vaccine (#1) 2024 RSV Immunization Adult Patie nts (1 - 1-dose 75+ series) 11/04/2027 HIB Vaccines Aged Out No longer eligi ble based on patient's age to complete this topic HPV Vaccines Aged Out No longer eligi ble based on patient's age to complete this topic Hepatitis A Vaccines Aged Out No long er eligible based on patient's age to complete this topic Hepatitis B Vaccines Aged Out No long er eligible based on patient's age to complete this topic IPV Vaccines Aged Out No longer eligi ble based on patient's age to complete this topic MMR Vaccines Aged Out No longer eligi ble based on patient's age to complete this topic Meningococcal ACWY Vaccine Aged Out N o longer eligible based on patient's age to complete this topic Meningococcal B Vaccine Aged Out No l onger eligible based on patient's age to complete this topic RSV Immunization Patients Un em 20 months Aged Out No longer eligible b ased on patient's age to complete this topic Varicella Vaccines Aged Out No longer eligible based on patient's age to complete this topic
--- OUTSIDE RECORDS SUMMARY | 2024-09-08 16:13 | XMS_ITS | Encounter Summary ---
Author Organization [employer] Address [address] [facility] [address] [place] [address] Care Team Providers Care Flap Lining Binder Name Role Phone Polly Toribio MD Primary Care Provider + Reason for Visit * Reason Comments Med Refill Encounter Details Date Type Department Care Team ([facility] st Contact Info) Description 03/01/2024 Refill [facility] [address] [place], [place] [phone] Polly Toribio MD [address] [place] [address], [place] [phone] Moderate persistent asthma without complication Social History Tobacco Use Types Packs/Day Years Used Date Smoking Tobacco: Never Smokeless Tobacco: Never Alcohol Use Standard Drinks/Week Comments Never 0 (1 standard drink = 0.6 oz pur e alcohol) Depression Answer Date Recorded Patient Health Questionnaire-9 Score 3 07/05/2022 Housing Stability Answer Date Recorded What is your housing situation today? I have kavitaissac hwang 10/07/[address] you li ve. Do you have problems with any of the following? None of the above 10/07/2023 Food Insecurity Answer Date Recorded Within the past 12 months, y ou worried that your food would run out before you got money to buy more: Never True 10/07/2023 Within the past 12 months,th e food you bought just didn't last and you didn't have enough money to get more: Never True Transportation Answer Date Recorded In the past 12 months, has l ack of transportation kept you from medical appts, meetings, work or from getting things needed for daily living? No 10/07/2023 Utilities Answer Date Recorded In the past 12 months, has t he electric, gas, oil or water company threatened to shut off services in your home? No 10/07/2023 Depression Answer Date Recorded Patient Health Questionnaire-2 Score 0 10/07/2023 Internet Access Answer Date Recorded Internet Access Q1 No 10/20/2023 Internet Access Q2 I do not want or need it 02/2023 Comments No Sex and Gender Information Value Date Recorded Sex Assigned at Female 12/18/2021 10:14 AM EDT Legal Sex Female 10:14 AM EDT Gender Identity Female 12/18/2021 10:14 AM EDT Sexual Orientation Straight 12/18/2021 10 :14 AM EDT documented as of this encounter Plan of Treatment Not on file documented as of this encounter Visit Diagnoses Diagnosis Moderate persistent asthma without complication documented in this encounter Additional Health Concerns Assessment Noted Time PHQ-9 Depression Total Score: 3 07/06/19 23 12:31 PM EDT documented as of this encounter Care Teams Flap Lining Binder Relationship Specialty Start Date End Date Polly Toribio MD [address] [place] [phone] PCP - General Family Medicine 10/10/18 documented as of this encounter
== END 2024-09-08 15:53 | disposition home or self-care (01) ==
LOC: HO.HPS 15:18
PROVIDERS: PCP Internal Medicine; Visit Provider Internal Medicine
DX: J44.9 Chronic obstructive pulmonary disease, unspecified (principal)
CPT/HCPCS: 99213

== ENCOUNTER → 2024-09-08 15:18 | Outpatient (BNVA) | payer MEDICARE, MEDICAID, SELFPAY | PROVIDERS: PCP Internal Medicine; Visit Provider Internal Medicine | DX: J44.9 Chronic obstructive pulmonary disease, unspecified (principal) | CPT/HCPCS: 99212 ==

== ENCOUNTER 2025-02-04 11:49 | Outpatient (REF) | payer OTHER, SELFPAY ==
--- NOTE | ~2025-02-04 | XR_ITS ---
EXAMINATION: XR FOOT 3 OR MORE VIEWS RIGHT HISTORY: R heel pain COMPARISON: There are no prior studies available for comparison. FINDINGS: Three views of the right foot are submitted. Osseous mineralization is normal. There is no fracture or dislocation. The joint spaces are preserved. Again seen are calcaneal spurs at the plantar aspect and at the insertion of the Achilles tendon. The soft tissues are unremarkable. XR/XR foot RT min 3V IMPRESSION: Calcaneal spurs without change. Electronically signed by: Paul Heath MD 02/04/2025 12:19 PM [facility]MA WADE
--- OUTSIDE RECORDS SUMMARY | 2025-02-04 11:00 | XMS_ITS | Encounter Summary ---
Author Organization [employer] Address [address] [place] [address] 7[address] [place] [address] Care Team Providers Care Drupal Php Developer Name Role Phone Polly Toribio MD Primary Care Provider + Reason for Referral * Consultation (Urgent) - Pending Review Specialty Diagnoses / Procedures Referred By Galilea matias Referred To Contact Podiatry Diagnoses Pain of right heel Geena Newton DO [address] [place] [address] Phone: tel: fax: Referral ID Status Reason Start Date Expiration Date Visits Requested Visits Authorized [id number] Pending Review Specialty Services Required 02/04/2026 1 1 Encounter Details Date Type Department Care Team (Latest Contact Info) Description 02/04/2025 11:00 AM EST Office Visit [facility] [address] [place] [address] Geena Newton DO [address] [place] [address] Pain of right heel (Primary Dx); Primary osteoarthritis of left knee; Arthritis Social History Tobacco Use Types Packs/Day Years Used Date Smoking Tobacco: Never Smokeless Tobacco: Never Alcohol Use Standard Drinks/Week Comments Never 0 (1 standard drink = 0.6 oz pur e alcohol) Depression Answer Date Recorded Patient Health Questionnaire-9 Score 3 07/05/2022 Housing Stability Answer Date Recorded What is your housing situation today? I have kavita hwang 10/07/[address] you [...] Access Answer Date Recorded Internet Access Q1 Yes 10/09/2024 Internet Access Q2 Not on file 10/09/2024 Comments No Sex and Gender Information Value Date Recorded Sex Assigned at Female 12/18/2021 10:14 AM EDT Legal Sex Female 10:14 AM EDT Gender Identity Female 12/18/2021 10:14 AM EDT Sexual Orientation Straight 12/18/2021 10 :14 AM EDT documented as of this encounter Last Filed Vital Signs Vital Sign Reading Time Taken Comments Blood Pressure 100/82 02/04/2025 11:09 AM EST Pulse 83 02/04/2025 11:09 AM EST Temperature 37.1 C (98.7 F) 02/04/2025 11:09 AM EST Respiratory Rate 20 02/04/2025 11:09 AM EST Oxygen Saturation - - Inhaled Oxygen Concentration - - Weight 81.4 kg (179 lb 6.4 oz) 02/04/2025 11:09 AM EST Height 157.5 cm (5' 2 ) 02/04/2025 11:09 AM EST Body Mass Index 32.81 02/04/2025 11:09 AM EST documented in this encounter Progress Notes * Geena Newton, DO - 02/04/2025 11:00 AM EST SUBJECTIVE: Jaqui Segal is a 74 y.o. year old female who presents for sick visit. HPI She comes to [place] c/o foot pain for one day. Heel and foot pain - Reports significant pain in the foot - Pain is intermittent, comes and goes, but is severe enough to prevent walking at times - Pain is not as prominent when sitting, mainly occurs during walking - Indicates pain in the heel - Previously had pain in the big toe and another area of the foot, which was associated with fluid accumulation, which has since resolved, unsure if current pain is the same as before - Has used acetaminophen for pain relief with no improvement - Expresses difficulty ambulating due to pain, requests assistance with a walker that has a seat tohelp with mobility around the house History provided by: Patient automotive wholesale parts advisor used: Yes Pain Severity: Severe Onset quality: Sudden Duration: 2 days Timing: Intermittent Progression: Unchanged Chronicity: New Associated symptoms: no abdominal pain, no chest pain, no diarrhea, no fever, no headaches, no shortness of breath and no vomiting Review of Systems Constitutional: Negative for chills and fever. Respiratory: Negative for shortness of breath. Cardiovascular: Negative for chest pain and leg swelling. Gastrointestinal: Negative for abdominal pain, diarrhea and vomiting. Musculoskeletal: Positive for arthralgias and gait problem. Neurological: Negative for headaches. Patient Active Problem List Diagnosis Asthma Chronic back pain Chronic obstructive lung disease (HCC) COVID-19 Cyst of breast Decreased thyroid stimulating hormone level Depressive disorder Diarrhea Epigastric pain Essential hypertension Stress incontinence, female Hypoxemia Insomnia Kidney lesion Knee pain Melena Non-toxic multinodular goiter Primary osteoarthritis of left knee Pulmonary emphysema (HCC) Right bundle branch block Tobacco dependence syndrome Postmenopausal state Trochanteric bursitis of right hip Mixed hyperlipidemia Right anterior shoulder pain Vitamin D deficiency Acute idiopathic gout involving toe of right foot Dyspnea on exertion Intrinsic eczema Diastolic dysfunction without heart failure Screening mammogram for breast cancer Class 1 obesity due to excess calories with serious comorbidity and body mass index (BMI) of 32.0 to 32.9 in adult Lateral epicondylitis of left elbow Vaccination declined Ascending aorta dilatation (CMS/HCC) Allergies Allergen Reactions Elie Inhibitors Cough OBJECTIVE Vitals: 02/04/25 1109 BP: 100/82 BP Location: Left arm Patient Position: Sitting BP Cuff Size: Adult Pulse: 83 Resp: 20 Temp: 98.7 ??F (37.1 ??C) TempSrc: Oral Weight: 179 lb 6.4 oz (81.4 kg) Height: 5' 2 (1.575 m) Physical Exam Constitutional: General: She is not in acute distress. Appearance: Normal appearance. Cardiovascular: Rate and Rhythm: Normal rate and regular rhythm. Heart sounds: Normal heart sounds. No murmur heard. Pulmonary: Effort: Pulmonary effort is normal. Breath sounds: Normal breath sounds. No wheezing or rhonchi. Musculoskeletal: Right foot: Tenderness present. No swelling or deformity. Comments: Diffuse TTP R heel Neurological: General: No focal deficit present. Mental Status: She is alert and oriented to person, place, and time. Cranial Nerves: No cranial nerve deficit. Motor: No weakness. Comments: Ambulates with limp Psychiatric: Mood and Affect: Mood normal. ASSESSMENT/PLAN Diagnoses and all orders for this visit: Pain of right heel Predominantly with standing/walking, significant TTP on exam, probable heel spurs -referred for foot xrays -treat with dose of toradol today -treat with prednisone BID x 5 days -cont tylenol prn -trial diclofenac gel -encouraged ice therapy -trial OTC shoe inserts -referred to podiatry -will send prescription for walker to assist with mobility -advised rtc if symptoms change or worsen, she agrees with plans - XR Foot 3+ Views Right; Future - ketorolac (Toradol) injection 30 mg - Referral to Podiatry; Future - acetaminophen (Tylenol 8 Hour) 650 MG ER tablet; TAKE 1 TABLET BY MOUTH EVERY 8 HOURS NEEDED - predniSONE (Deltasone) 20 MG tablet; Take 1 tablet (20 mg) by mouth 2 times daily for 5 days. - Diclofenac Sodium 1 % gel; Apply 2 g topically if needed in the morning, at noon, in the evening,and at bedtime (pain). F/U with PCP as scheduled or sooner prn Current Outpatient Medications: acetaminophen (Tylenol 8 Hour) 650 MG ER tablet, TAKE 1 TABLET BY MOUTH EVERY 8 HOURS NEEDED, Disp: 90 tablet, Rfl: 1 albuterol (2.5 MG/3ML) 0.083% nebulizer solution, INHALE 1 AMPULE USING A NEBULIZER EVERY 4 HOURS NEEDED FOR COUGH, FOR WHEEZING OR SHORTNESS OF BREATH, Disp: 90 mL, Rfl: 1 albuterol (Ventolin HFA) 108 (90 Base) MCG/ACT inhaler, INHALE 2 PUFFS BY MOUTH EVERY 4 TO 6 HOURS NEEDED, Disp: 18 g, Rfl: 11 allopurinol (Zyloprim) 300 MG tablet, TAKE 1 TABLET BY MOUTH EVERY MORNING, Disp: 90 tablet, Rfl: 3 amLODIPine (Norvasc) 10 MG tablet, Take 1 tablet (10 mg) by mouth Once per day., Disp: 30 tablet, Rfl: 11 atorvastatin (Lipitor) 20 MG tablet, TAKE 1 TABLET BY MOUTH AT BEDTIME, Disp: 90 tablet, Rfl: 3 betamethasone valerate (Valisone) 0.1 % cream, APPLY 1 GRAM TOPICALLY TO AFFECTED AREA(S) TWICE DAILY IN THE MORNING AND AT BEDTIME NEEDED FOR DRYNESS, Disp: 45 g, Rfl: 2 bismuth subsalicylate (Pepto-Bismol) 262 MG chewable tablet, chew 1 tab po tid prn diarrhea/abd pain, Disp: , Rfl: Blood Pressure kit, Use as directed Dx: HTN, Disp: 1 kit, Rfl: 0 clotrimazole (Lotrimin) 1 % cream, APPLY TO THE AFFECTED AREA(S) TWICE DAILY, Disp: 30 g, Rfl: 2 Diclofenac Sodium 1 % gel, APPLY 2 GRAMS TO AFFECTED AREA(S) THREE TIMES DAILY NEEDED FOR PAIN, Disp: 100 g, Rfl: 3 Diclofenac Sodium 1 % gel, Apply 2 g topically if needed in the morning, at noon, in the evening, and at bedtime (pain)., Disp: 150 g, Rfl: 3 ergocalciferol (Vitamin D2) 1.25 MG (74831 UT) capsule, TAKE 1 CAPSULE BY MOUTH ONCE A WEEK, Disp: 12 capsule, Rfl: 3 FLUoxetine (PROzac) 20 MG capsule, Take 1 capsule by mouth in the morning., Disp: , Rfl: fluticasone-salmeterol (Advair HFA) 230-21 MCG/ACT inhaler, Inhale 2 puffs 2 times daily. Rinse mouth with water after use to reduce aftertaste and incidence of candidiasis. Do not swallow., Disp: 12g, Rfl: 11 hydroCHLOROthiazide (HYDRODiuril) 25 MG tablet, TAKE 1 TABLET BY MOUTH EVERY DAY, Disp: 90 tablet, Rfl: 1 ibuprofen 600 MG tablet, TAKE 1 TABLET BY MOUTH EVERY 8 HOURS NEEDED FOR MILD PAIN, Disp: 90 tablet, Rfl: 0 lidocaine (Xylocaine) 5 % ointment, APPLY TO THE AFFECTED AREA(S) 1 TO 3 TIMES PER DAY NEEDED FOR PAIN, Disp: 30 g, Rfl: 0 loratadine (Claritin) 10 MG tablet, Take 1 tablet by mouth if needed each day for allergies., Disp:, Rfl: losartan (Cozaar) 50 MG tablet, TAKE 1 TABLET BY MOUTH EVERY DAY, Disp: 90 tablet, Rfl: 1 Misc. Devices (Bath/Shower Seat) misc, Use as directed., Disp: , Rfl: Misc. Devices (Cane) misc, Use daily, Disp: , Rfl: montelukast (Singulair) 10 MG tablet, TAKE 1 TABLET BY MOUTH EVERY MORNING, Disp: 90 tablet, Rfl: 1 Nebulizers (AeroEclipse II Nebulizer) misc, Use with albuterol every 4 hrs as needed Dx: asthma, Disp: , Rfl: predniSONE (Deltasone) 20 MG tablet, Take 1 tablet (20 mg) by mouth 2 times daily for 5 days., Disp: 10 tablet, Rfl: 0 QUEtiapine (SEROquel) 100 MG tablet, TAKE 1 TABLET BY MOUTH EVERY DAY AT BEDTIME, Disp: 30 tablet, Rfl: 1 Respiratory Therapy Supplies (Jet-Air Reusable Nebulizer Sys) kit, Use with nebulizer as directed Dx: asthma, Disp: , Rfl: Spacer/Aero-Holding Chambers device, use as directed, Disp: 1 Units, Rfl: 0 Umeclidinium [place] (Incruse Ellipta) 62.5 MCG/ACT aerosol powder , Inhale 1 puff 1 (one) time each day. Inhale 1 puff by inhalation route every day at the same time each day, Disp: , Rfl: zoster vaccine, live, (Zostavax) 66858 UNT/0.65ML injection, inject 0.65 milliliter by subcutaneousroute once, Disp: , Rfl: No current facility-administered medications for this visit. This note was drafted using Ambient (AI) technology. The patient/patient's guardian has been informed and has consented to the use of this technology: Yes documented in this encounter Plan of Treatment Upcoming Encounters Date Type Department Care Team (Late st Contact Info) Description 03/12/2025 12:15 PM EST Office Visit [facility] [address] [place] [address] Polly Toribio MD [address] [place] [address] 03/16/2025 1:30 PM EST Office Visit [facility] [address] [place] [address] Roman Prisca, OD [address] [place] [address] Scheduled Referrals Name Type Priority Associated Diagnoses Orde r Schedule Referral to Podiatry Outpatient Referral Urgent Pain of right heel Expected: 02/04/2025 (Approximate), Expires: 02/04/2026 documented as of this encounter Procedures Procedure Name Priority Date/Time Associated Diagnosis Comments XR FOOT 3+ VIEWS RIGHT Routine 02/04/2025 12:11 PM EST Pain of right heel documented in this encounter Results * XR Foot 3+ Views Right (02/04/2025 12:11 PM EST) Anatomical Region Laterality Modality Lower Extremities, Foot Right [facility] 02/04/2025 12:1 1 PM EST Narrative 02/04/2025 12:22 PM EST [facility] [address] [place] [address] XRay Report Signed Patient: Jaqui Segal MR#: [id number] 3 : 1950 Acct:[id number] Age/Sex: 74 / F ADM Date: 02/04/25 Loc: .HHCX Attending Dr: Geena Newton DO Ordering Physician: Geena Newton DO Date of Service: 02/04/25 Procedure(s): XR foot RT min 3V Accession Number(s): [id number] cc: Geena Newton DO Reason for Exam: R heel pain EXAMINATION: XR FOOT 3 OR MORE VIEWS RIGHT HISTORY: R heel pain COMPARISON: There are no prior studies available for comparison. FINDINGS: Three views of the right foot are submitted. Osseous mineralization is normal. There is no fracture or dislocation. The joint spaces are preserved. Again seen are calcaneal spurs at the plantar aspect and at the insertion of the Achilles tendon. The soft tissues are unremarkable. XR/XR foot RT min 3V IMPRESSION: Calcaneal spurs without change. Electronically signed by: Paul Heath MD 02/04/2025 12:19 PM EST RP Dictated By: Paul Heath MD Signed By: <Electronically signed by Paul Heath MD in OV> 02/04/25 1219 DD/ 1211 TD/TT: 02/04/25 1216 Family Advocate: Procedure Note Donotuseinterpreter, Image - 02/04/[address] [address] XRay Report Signed Patient: Diony Segal#: [id number] 3 : 1950cct:[id number] Age/Sex: 74 / FADM Date: 02/04/25 Loc: HO.HHCX Attending Dr: Geena Newton DO Ordering Physician: Geena Newton DO Date of Service: 02/04/25 Procedure(s): XR foot RT min 3V Accession Number(s): [id number] cc: Geena Newton DO Reason for Exam: R heel pain EXAMINATION: XR FOOT 3 OR MORE VIEWS RIGHT HISTORY: R heel pain COMPARISON: There are no prior studies available for comparison. FINDINGS: Three views of the right foot are submitted. Osseous mineralization is normal. There is no fracture or dislocation. The joint spaces are preserved. Again seen are calcaneal spurs at the plantar aspect and at the insertion of the Achilles tendon. The soft tissues are unremarkable. XR/XR foot RT min 3V IMPRESSION: Calcaneal spurs without change. Electronically signed by: Paul Heath MD 02/04/2025 12:19 PM EST RP Dictated By: Paul Heath MD Signed By: <Electronically signed by Paul Heath MD in OV> 02/04/25 1219 DD/ 1211 TD/TT: 02/04/25 1216 Family Advocate: Geena Newton DO IMG XR PROCEDURES Final Resu lt documented in this encounter Visit Diagnoses Diagnosis Pain of right heel- Primary Primary osteoarthritis of left knee Arthritis Unspecified arthropathy, site unspecified documented in this encounter Administered Medications Inactive Administered Medications - up to 3 most recent administrations Medication Order MAR Action Action Date Dose Rate Site ketorolac (Toradol) injection 30 mg 30 mg, Intramuscular, Once, On Renu 02/04/25 at 1145, For 1 doseIndications:Pain of right heel Given 02/04/2025 11:45 AM EST 30 mg Lef t Deltoid documented in this encounter Additional Health Concerns Assessment Noted Time PHQ-9 Depression Total Score: 3 07/06/19 23 12:31 PM EDT documented as of this encounter Care Teams Drupal Php Developer Relationship Specialty Start Date End Date Polly Toribio MD [address] [place] [phone] PCP - General Family Medicine 10/10/18 documented as of this encounter
--- OUTSIDE RECORDS SUMMARY | 2025-02-04 15:40 | XMS_ITS | Encounter Summary ---
Author Organization [employer] Address [address] [place] [address] 7 [place] [address] Care Team Providers Care Seamstress Fitter Name Role Phone Polly Toribio MD Primary Care Provider + Reason for Visit * Reason Comments Med Refill Encounter Details Date Type Department Care Team (Late Contact Info) Description 11/10/2022 Refill [facility] [address] [place] [address] [phone] Polly Toribio MD [address] [place] [address] [phone] Moderate persistent asthma without complication Social History Tobacco Use Types Packs/Day Years Used Date Smoking Tobacco: Never Smokeless Tobacco: Never Alcohol Use Standard Drinks/Week Comments Never 0 (1 standard drink = 0.6 oz pur e alcohol) Depression Answer Date Recorded Patient Health Questionnaire-9 Score 3 07/05/2022 Depression Answer Date Recorded Patient Health Questionnaire-2 Score 3 07/05/2022 Comments Unknown Sex and Gender Information Value Date Recorded Sex Assigned at Female 12/18/2021 10:14 AM EDT Legal Sex Female 10:14 AM EDT Gender Identity Female 12/18/2021 10:14 AM EDT Sexual Orientation Straight 12/18/2021 10 :14 AM EDT documented as of this encounter Plan of Treatment Upcoming Encounters Date Type Department Care Team (Late Contact Info) Description 03/12/2025 12:15 PM EST Office Visit [facility] [address] [place] [address] [phone] Polly Toribio MD [address] [place], [place] [phone] 03/16/2025 1:30 PM EST Office Visit [facility] [address] [place], [place] [phone] Prisca Owens, OD [address] [place] [address] documented as of this encounter Visit Diagnoses Diagnosis Moderate persistent asthma without complication documented in this encounter Additional Health Concerns Assessment Noted Time PHQ-9 Depression Total Score: 3 07/06/19 23 12:31 PM EDT documented as of this encounter Care Teams Seamstress Fitter Relationship Specialty Start Date End Date Polly Toribio MD [address] [place] [address] [phone] PCP - General Family Medicine 10/10/18 documented as of this encounter
--- OUTSIDE RECORDS SUMMARY | 2025-02-04 15:40 | XMS_ITS | Encounter Summary ---
Author Organization [employer] Address [address] [facility] 7t [place] [address] Care Team Providers Care Operational Communication Chief Name Role Phone Polly Toribio MD Primary Care Provider + Encounter Details Date Type Department Care Team (Latest Contact Info) Description 02/04/2025 Travel Social History Tobacco Use Types Packs/Day Years Used Date Smoking Tobacco: Never Smokeless Tobacco: Never Alcohol Use Standard Drinks/Week Comments Never 0 (1 standard drink = 0.6 oz pur e alcohol) Depression Answer Date Recorded Patient Health Questionnaire-9 Score 3 07/05/2022 Housing Stability Answer Date Recorded What is your housing situation today? I have kavita jaiden 10/07/[address] you li [...] Description 03/12/2025 12:15 PM EST Office Visit [facility] [address] [place] [address] Polly Toribio MD [address] [place] [address] 03/16/2025 1:30 PM EST Office Visit [facility] [address] [place] [address] Tarka, Prisca, OD [address] [place] [address] documented as of this encounter Visit Diagnoses Not on filedocumented in this encounter Additional Health Concerns Assessment Noted Time PHQ-9 Depression Total Score: 3 07/06/19 23 12:31 PM EDT documented as of this encounter Care Teams Operational Communication Chief Relationship Specialty Start Date End Date Polly Toribio MD [address] [place] [phone] PCP - General Family Medicine 10/10/18 documented as of this encounter
--- OUTSIDE RECORDS SUMMARY | 2025-02-04 15:40 | XMS_ITS | Encounter Summary ---
Author Organization [employer] Address [address] [place] [address] [address] [place] [address] Care Team Providers Care Wheel Shop Supervisor Name Role Phone Polly Toribio MD Primary Care Provider + Reason for Visit * Reason Comments Med Refill Encounter Details Date Type Department Care Team (Late st Contact Info) Description 11/14/2022 Refill [facility] [address] [place] [address] [phone] Polly Toribio MD [address] [place] [address] [phone] Moderate persistent asthma without complication; Chronic obstructive pulmonary disease, unspecified (CMS/HCC) Social History Tobacco Use Types Packs/Day Years [...] Description 03/12/2025 12:15 PM EST Office Visit [facility] [address] [place] [address] [phone] Polly Toribio MD [address] [place], [place] [phone] 03/16/2025 1:30 PM EST Office Visit [facility] [address] [place], [place] [phone] Roman Prisca, OD [address] [place] [address] documented as of this encounter Visit Diagnoses Diagnosis Moderate persistent asthma without complication Chronic obstructive pulmonary disease, unspecified (HCC) documented in this encounter Additional Health Concerns Assessment Noted Time PHQ-9 Depression Total Score: 3 07/06/19 23 12:31 PM EDT documented as of this encounter Care Teams Wheel Shop Supervisor Relationship Specialty Start Date End Date Polly Toribio MD [address] [place] [phone] PCP - General Family Medicine 10/10/18 documented as of this encounter
--- OUTSIDE RECORDS SUMMARY | 2025-02-04 15:40 | XMS_ITS | Encounter Summary ---
Author Organization [employer] Address [address] [place] [address] [address] [place] [address] Care Team Providers Care Gymnastic Coach Name Role Phone Polly Toribio MD Primary Care Provider + Reason for Visit * Reason Comments Med Refill Encounter Details Date Type Department Care Team ([facility] Contact Info) Description 09/20/2022 Refill [facility] [address] [place] [address] [phone] Polly Toribio MD [address] [place] [address] [phone] Chronic obstructive pulmonary disease, unspecified (CMS/HCC) Social [...] Description 03/12/2025 12:15 PM EST Office Visit [facility] [address] [place] [address] [phone] Polly Toribio MD [address] [place] [address] [phone] 03/16/2025 1:30 PM EST Office Visit [facility] [address] [place], [place] [phone] Prisca Owens, OD [address] [place] [address] documented as of this encounter Visit Diagnoses Diagnosis Chronic obstructive pulmonary disease, unspecified (HCC) documented in this encounter Additional Health Concerns Assessment Noted Time PHQ-9 Depression Total Score: 3 07/06/19 23 12:31 PM EDT documented as of this encounter Care Teams Gymnastic Coach Relationship Specialty Start Date End Date Polly Toribio MD [address] [place] [address] [phone] PCP - General Family Medicine 10/10/18 documented as of this encounter
--- OUTSIDE RECORDS SUMMARY | 2025-02-04 15:40 | XMS_ITS | Encounter Summary ---
Author Organization [employer] Address [address] [place] [address] [address]t [place] [address] Care Team Providers Care Client Service Executive Name Role Phone Polly Toribio MD Primary Care Provider + Reason for Visit * Reason Comments Med Refill Encounter Details Date Type Department Care Team ([facility] Contact Info) Description 05/02/2022 Refill [facility] [address] [place], [place] [phone] Polly Toribio MD [address] [place] [phone] Moderate persistent asthma without complication Social History Tobacco Use Types Packs/Day Years Used Date Smoking Tobacco: Never Smokeless Tobacco: Never Alcohol Use Standard Drinks/Week Comments Never 0 (1 standard drink = 0.6 oz pur e alcohol) Comments Unknown Sex and Gender Information Value [...] Office Visit [facility] [address] [place] [address] Polly Toribio MD [address] [place] [phone] 03/16/2025 1:30 PM EST Office Visit [facility] [address] [place] [phone] Chan Owensssica, OD [address] [place] [address] documented as of this encounter Visit Diagnoses Diagnosis Moderate persistent asthma without complication documented in this encounter Care Teams Client Service Executive Relationship Specialty Start Date End Date Polly Toribio MD [address] [place] [phone] PCP - General Family Medicine 10/10/18 documented as of this encounter
--- OUTSIDE RECORDS SUMMARY | 2025-02-04 15:40 | XMS_ITS | Encounter Summary ---
Author Organization [employer] Address [address] [facility] 7t [place] [address] Care Team Providers Care Church Worker Name Role Phone Polly Toribio MD Primary Care Provider + Reason for Visit * Reason Comments Med Refill Encounter Details Date Type Department Care Team ([facility] st Contact Info) Description 10/01/[address] [facility] MEDICINE [address] [place], [place] [phone] Polly Toribio MD 230 [place], [place] [phone] Moderate persistent asthma without complication Social History [...] Answer Date Recorded Internet Access Q1 Yes 08/25/2024 Internet Access Q2 I do not want or need it 09/2024 Comments No Sex and Gender Information Value [...] Description 03/12/2025 12:15 PM EST Office Visit [facility] MEDICINE [address] [place] [address] Polly Toribio MD 230 [place] [address] 03/16/2025 1:30 PM EST Office Visit [facility] OPTOMETRY [address] [place] [address] Tarka, Prisca, OD 267 [place] [address] documented as of this encounter Visit Diagnoses Diagnosis Moderate persistent asthma without complication documented in this encounter Additional Health Concerns Assessment Noted Time PHQ-9 Depression Total Score: 3 07/06/19 23 12:31 PM EDT documented as of this encounter Care Teams Church Worker Relationship Specialty Start Date End Date Polly Toribio MD [address] [place] [address] [phone] PCP - General Family Medicine 10/10/18 documented as of this encounter
--- OUTSIDE RECORDS SUMMARY | 2025-02-04 15:40 | XMS_ITS | Encounter Summary ---
Author Organization [employer] Address [address] [place] [address] 7t [place] [address] Care Team Providers Care New Product Trainer Name Role Phone Polly Toribio MD Primary Care Provider + Reason for Visit * Reason Comments Med Refill Encounter Details Date Type Department Care Team ([facility] st Contact Info) Description 07/02/2022 Refill [facility] MEDICINE 230 [place], [place] [phone] Polly Toribio MD 230 [place], [place] [phone] Social History Tobacco Use Types Packs/Day Years [...] Orientation Straight 12/18/2021 10 :14 AM EDT COVID-19 Exposure Response Date Recorded In the last 10 days, have yo issac been in contact with someone who was confirmed or suspected to have Coronavirus/COVID-19? No / Unsure 07/05/2022 11:21 AM EDT documented as of this encounter Functional Status * Over the past 2 weeks, how often have you been bothered by any of the following problems? Question Answer Date of Assessment Author Patient Health Questionnaire -2 Score 3 07/05/2022 12:31 PM EDT Jurgen Manjarrez MA * How difficult have these problems made it for you to do your work, take care of things at home, or get along with other people? Answer Date of Assessment Author Somewhat difficult 07/05/2022 12:31 PM EDT Annika Murray MA * Over the past 2 weeks, how often have you been bothered by any of the following problems? Question Answer Date of Assessment Author Little interest or pleasure in doing things Nearly every day 07/05/2022 12:31 PM EDT Annika Manjarrez MA Feeling down, depressed, or hopeless Not at all 07/05/2022 12:31 PM CRISTAT Jurgen Manjarrez MA Trouble falling or staying asleep, or sleeping too much Not at all 07/05/2022 12:31 PM CRISTAT Jurgen Manjarrez MA Feeling tired or having little energy Not at all 07/05/2022 12:31 PM EDT Jurgen Manjarrez MA Poor appetite or overeating Not at all 07/05/2022 12:31 PM CRISTAT Jurgen Manjarrez MA Feeling bad about yourself - or that you are a failure or have let yourself or your family down Not at all 07/05/2022 12:31 PM CRISTAT Jurgen Manjarrez MA Trouble concentrating on things, such as reading the newspaper or watching television Not at all 07/05/2022 12:31 PM CRISTAT uJrgen Manjarrez MA Moving or speaking so slowly that other people could have noticed? Or the opposite - being so fidgety or restless that you have been moving around a lot more than usual. Not at all 07/05/2022 12:31 PM CRISTAT Jurgen Manjarrez MA Thoughts that you would be better off or hurting yourself in some way Not at all 07/05/2022 12:31 PM CRISTAT Dodie Manjarrez MA Patient Health Questionnaire-9 Score 3 07/05/2022 12:31 PM CRISTAT Philip Manjarrez MA documented as of this encounter Plan of Treatment Upcoming Encounters Date Type Department Care Team (Late st Contact Info) Description 03/12/2025 12:15 PM EST Office Visit [facility] MEDICINE 230 [place] [address] Polly Toribio MD 230 [place] [address] 03/16/2025 1:30 PM EST Office Visit [facility] OPTOMETRY 267 [place], [place] [phone] Prisca Owens, OD 267 [place] [address] documented as of this encounter Visit Diagnoses Not on filedocumented in this encounter Care Teams New Product Trainer Relationship Specialty Start Date End Date Polly Toribio MD 230 [place] [address] PCP - General Family Medicine 10/10/18 documented as of this encounter
--- OUTSIDE RECORDS SUMMARY | 2025-02-04 15:40 | XMS_ITS | Encounter Summary ---
Author Organization [employer] Address [address] [facility] 7t [place] [address] Care Team Providers Care Coordinating Producer Name Role Phone Polly Toribio MD Primary Care Provider + Reason for Visit * Reason Comments Med Refill Encounter Details Date Type Department Care Team ([facility] st Contact Info) Description 08/09/2023 Refill [facility] MEDICINE 230 [place], [place] [phone] Polly Toribio MD 230 [place], [place] [phone] Moderate persistent asthma without complication Social History Tobacco Use Types Packs/Day Years Used Date Smoking Tobacco: Never Smokeless Tobacco: Never Alcohol Use Standard Drinks/Week Comments Never 0 (1 standard drink = 0.6 oz pur e alcohol) Depression Answer Date Recorded Patient Health Questionnaire-9 Score 3 07/05/2022 Housing Stability Answer Date Recorded What is your housing situation today? I have kavitaissac hwang 12/04/[address] you li ve. Do you have problems with any of the following? None of the above 12/04/2022 Food Insecurity Answer Date Recorded Within the past 12 months, y ou worried that your food would run out before you got money to buy more: Never True 12/04/2022 Within the past 12 months,th e food you bought just didn't last and you didn't have enough money to get more: Never True Transportation Answer Date Recorded In the past 12 months, has l ack of transportation kept you from medical appts, meetings, work or from getting things needed for daily living? No 12/04/2022 Utilities Answer Date Recorded In the past 12 months, has t he electric, gas, oil or water company threatened to shut off services in your home? No 12/04/2022 Depression Answer Date Recorded Patient Health Questionnaire-2 [...] Description 03/12/2025 12:15 PM EST Office Visit [facility] MEDICINE 230 [place] [address] Polly Toribio MD [address] [place] [phone] 03/16/2025 1:30 PM EST Office Visit [facility] OPTOMETRY [address] [place] [address] Tarka, Prisca, OD 267 [place] [address] documented as of this encounter Visit Diagnoses Diagnosis Moderate persistent asthma without complication documented in this encounter Additional Health Concerns Assessment Noted Time PHQ-9 Depression Total Score: 3 07/06/19 23 12:31 PM EDT documented as of this encounter Care Teams Coordinating Producer Relationship Specialty Start Date End Date Polly Toribio MD [address] [place] [id number] PCP - General Family Medicine 10/10/18 documented as of this encounter
--- OUTSIDE RECORDS SUMMARY | 2025-02-04 15:40 | XMS_ITS | Encounter Summary ---
Author Organization [employer] Address [address] [facility] 7t [place] [address] Care Team Providers Care Plush Cutter Name Role Phone Polly Toribio MD Primary Care Provider + Reason for Visit * Reason Comments Med Refill Encounter Details Date Type Department Care Team ([facility] st Contact Info) Description 01/18/2023 Refill [facility] MEDICINE 230 [place], [place] [phone] Polly Toribio MD 230 [place], [place] [phone] Moderate persistent asthma without complication Social History [...] Description 03/12/2025 12:15 PM EST Office Visit [facility] MEDICINE 230 [place] [address] Polly Toribio MD [address] [place] [phone] 03/16/2025 1:30 PM EST Office Visit [facility] OPTOMETRY 267 [place] [address] Tarka, Prisca, OD 267 [place] [address] documented as of this encounter Visit Diagnoses Diagnosis Moderate persistent asthma without complication documented in this encounter Additional Health Concerns Assessment Noted Time PHQ-9 Depression Total Score: 3 07/06/19 23 12:31 PM EDT documented as of this encounter Care Teams Plush Cutter Relationship Specialty Start Date End Date Polly Toribio MD [address] [place] [phone] PCP - General Family Medicine 10/10/18 documented as of this encounter
--- OUTSIDE RECORDS SUMMARY | 2025-02-04 15:40 | XMS_ITS | Encounter Summary ---
Author Organization [employer] Address [address] [place] [address] 7 [place] [address] Care Team Providers Care Tube Molder Fiberglass Name Role Phone Polly Toribio MD Primary Care Provider + Reason for Visit * Reason Comments Med Refill Encounter Details Date Type Department Care Team ([facility] Contact Info) Description 11/12/2022 Refill [facility] MEDICINE [address] [place] [phone] Polly Toribio MD [address] [place] [address] [phone] Chronic obstructive pulmonary disease, unspecified (CMS/HCC) Social [...] Description 03/12/2025 12:15 PM EST Office Visit [facility] MEDICINE [address] [place] [address] [phone] Polly Toribio MD [address] [place] [address] [phone] 03/16/2025 1:30 PM EST Office Visit [facility] OPTOMETRY [address] [place], [place] [phone] Prisca Owens, OD 267 [place] [address] documented as of this encounter Visit Diagnoses Diagnosis Chronic obstructive pulmonary disease, unspecified (HCC) documented in this encounter Additional Health Concerns Assessment Noted Time PHQ-9 Depression Total Score: 3 07/06/19 23 12:31 PM EDT documented as of this encounter Care Teams Tube Molder Fiberglass Relationship Specialty Start Date End Date Polly Toribio MD [address] [place] [address] [phone] PCP - General Family Medicine 10/10/18 documented as of this encounter
--- OUTSIDE RECORDS SUMMARY | 2025-02-04 15:40 | XMS_ITS | Encounter Summary ---
Author Organization [employer] Address [address] [facility] 7t [place] [address] Care Team Providers Care Ophthalmologist Retina Specialist Name Role Phone Polly Toribio MD Primary Care Provider + Reason for Visit * Reason Onset Date Comments Nurse Triage 02/04/2025 Encounter Details Date Type Department Care Team ([facility] st Contact Info) Description 02/04/2025 Telephone [facility] MEDICINE 230 [place], [place] [phone] Polly Toribio MD 230 [place], [place] [phone] Nurse Triage Social History Tobacco Use Types Packs/Day Years [...] t he electric, gas, oil or water [facility] threatened to shut off services in your [...] AM EDT documented as of this encounter Miscellaneous Notes * Telephone Encounter - Phyllis Webb RN - 02/04/2025 9:36 AM EST Telephone call to pt via [employer] [place] [phone]. She said yesterday she developed 9/10 pain on the sole ofher foot, denies injury or overuse. States it feels mildly swollen, denies redness, blue color to toes, warmth, fever. She reports taking tylenol to minimal relief. Advised her to come to [facility] today for provider evaluation, pt states she will come, explained it is open on first-come, first-servebasis and wait times may vary. Discussed home care level as below, including resting foot, elevating for swelling, trying heat or ice as tolerated. Reviewed reasons to call back. Pt verbalized understanding. Protocol Used: Foot Pain (Adult) Protocol-Based Disposition: See in Office or Video Visit Today Positive Triage Question: * Severe pain (e.g., excruciating, unable to do any normal activities) * All higher-acuity triage questions were negative. Care Advice Discussed: * Foot Pain - Aggravating Factors * Pain Medicines * Reasons To Call Back - Moderate pain (interferes with normal activities) lasts over 3 days - Mild pain lasts over 7 days - Signs of infection occur (such as spreading redness, warmth, fever) - You become worse * Telephone Encounter - Amy Graysonz - 02/04/2025 8:49 AM EST Symptom: Foot or Ankle Pain - Not From Injury Outcome: Schedule an urgent appointment (within 1 hour) or talk to a nurse or provider soon Reason: Trouble walking The caller accepted this outcome. Contact pt at [phone] documented in this encounter Plan of Treatment Upcoming Encounters Date Type Department Care Team (Late st Contact Info) Description 03/12/2025 12:15 PM EST Office Visit [facility] MEDICINE 230 [place] [address] Polly Toribio MD 230 [place] [address] 03/16/2025 1:30 PM EST Office Visit [facility] OPTOMETRY [address] [place] [address] Prisca Owens, OD 267 [place] [address] documented as of this encounter Visit Diagnoses Not on filedocumented in this encounter Additional Health Concerns Assessment Noted Time PHQ-9 Depression Total Score: 3 07/06/19 23 12:31 PM EDT documented as of this encounter Care Teams Ophthalmologist Retina Specialist Relationship Specialty Start Date End Date Polly Toribio MD [address] [place] [phone] PCP - General Family Medicine 10/10/18 documented as of this encounter
--- OUTSIDE RECORDS SUMMARY | 2025-02-04 15:40 | XMS_ITS | Encounter Summary ---
Author Organization [employer] Address [address] [place] [address] 7t [place] [address] Care Team Providers Care Business Administration Instructor Name Role Phone Polly Toribio MD Primary Care Provider + Reason for Visit * Reason Onset Date Comments forms 07/03/2022 Encounter Details Date Type Department Care Team ([facility] st Contact Info) Description 07/03/2022 Telephone [facility] MEDICINE 230 [place], [place] [phone] Polly Toribio MD 230 [place], [place] [phone] forms Social History Tobacco Use Types Packs/Day Years [...] much Not at all 07/05/2022 12:31 PM EDT Jurgen Manjarrez MA Feeling tired or having [...] 07/05/2022 12:31 PM CRISTAT Jurgen Manjarrez MA Moving or speaking so slowly that other people could have noticed? Or the opposite - being so fidgety or restless that you have been moving around a lot more than usual. Not at all 07/05/2022 12:31 PM Jurgen Carrington MA Thoughts that you would be better off or hurting yourself in some way Not at all 07/05/2022 12:31 PM CRISTAT Dodie Manjarrez MA Patient Health Questionnaire-9 Score 3 07/05/2022 12:31 PM CRISTAT Philip Manjarrez MA documented as of this encounter Miscellaneous Notes * Telephone Encounter - Renate Pieter - 07/03/2022 11:36 AM EDT Tc from pt stated need a med b form for Albuterol for nebulizer machine. documented in this encounter Plan of Treatment Upcoming Encounters Date Type Department Care Team (Late st Contact Info) Description 03/12/2025 12:15 PM EST Office Visit [facility] MEDICINE 230 [place] [address] Polly Toribio MD 230 [place] [address] 03/16/2025 1:30 PM EST Office Visit [facility] OPTOMETRY [address] [place] [address] Prisca Owens, OD 267 [place] [address] documented as of this encounter Visit Diagnoses Not on filedocumented in this encounter Care Teams Business Administration Instructor Relationship Specialty Start Date End Date Polly Toribio MD [address] [place] [address] PCP - General Family Medicine 10/10/18 documented as of this encounter
--- OUTSIDE RECORDS SUMMARY | 2025-02-04 15:40 | XMS_ITS | Encounter Summary ---
Author Organization [employer] Address [address] [facility] 7t [place] [address] Care Team Providers Care Recruiter Coordinator Name Role Phone Polly Toribio MD Primary Care Provider + Reason for Visit * Reason Comments Med Refill Encounter Details Date Type Department Care Team ([facility] st Contact Info) Description 03/01/2024 Refill [facility] MEDICINE 230 [place], [place] [phone] Polly Toribio MD 230 [place], [place] [phone] Moderate persistent asthma without complication Social History [...] Description 03/12/2025 12:15 PM EST Office Visit [facility] MEDICINE 230 [place] [address] Polly Toribio MD 230 [place] [address] 03/16/2025 1:30 PM EST Office Visit [facility] OPTOMETRY [address] [place] [address] Tarka, Prisca, OD 267 [place] [address] documented as of this encounter Visit Diagnoses Diagnosis Moderate persistent asthma without complication documented in this encounter Additional Health Concerns Assessment Noted Time PHQ-9 Depression Total Score: 3 07/06/19 23 12:31 PM EDT documented as of this encounter Care Teams Recruiter Coordinator Relationship Specialty Start Date End Date Polly Toribio MD [address] [place] [address] [phone] PCP - General Family Medicine 10/10/18 documented as of this encounter
--- OUTSIDE RECORDS SUMMARY | 2025-02-04 15:40 | XMS_ITS | Clinical Summary ---
Author Organization [employer] Address [address] [place] [address] [address] [place] [address] Care Team Providers Care Weigher Production Name Role Phone Polly Toribio MD Primary Care Provider + Allergies Active Allergy Reactions Criticality Noted Date Comments Elie Inhibitors Cough 03/02/2010 Medications zoster vaccine, live, (Zostavax) 95613 UNT/0.65ML injection inject 0.65 milliliter by subcutaneous route once 018 Active bismuth subsalicylate (Pepto-Bismol) 262 MG chewable tablet chew 1 tab po tid prn diarrhea/abd pain 022 Active FLUoxetine (PROzac) 20 MG capsule Take 1 capsule by mouth in the morning. 021 Active loratadine (Claritin) 10 MG tablet Take 1 tablet by mouth if needed each day for allergies. 020 Active Umeclidinium [place] (Incruse Ellipta) 62.5 MCG/ACT aerosol powder Inhale 1 puff 1 (one) time each day. Inhale 1 puff by inhalation route every day at the same time each day Active Misc. Devices (Bath/Shower Seat) misc Use as directed. 021 Active Misc. Devices (Cane) misc Use daily Active Respiratory Therapy Supplies (Jet-Air Reusable Nebulizer Sys) kit Use with nebulizer as directed Dx: asthma Active Nebulizers (AeroEclipse II Nebulizer) misc Use with albuterol every 4 hrs as needed Dx: asthma Active Spacer/Aero-Holdi ng Chambers deviceIndications :Simple chronic bronchitis (CMS/HCC) (HCC) use as directed 1 Units 023 Active ibuprofen 600 MG tablet TAKE 1 TABLET BY MOUTH EVERY 8 HOURS NEEDED FOR MILD PAIN 90 tablet 024 Active fluticasone-salme terol (Advair HFA) 230-21 MCG/ACT inhaler Inhale 2 puffs 2 times daily. Rinse mouth with water after use to reduce aftertaste and incidence of candidiasis. Do not swallow. 12 g 11 024 Active betamethasone valerate (Valisone) 0.1 % cream APPLY 1 GRAM TOPICALLY TO AFFECTED AREA(S) TWICE DAILY IN THE MORNING AND AT BEDTIME NEEDED FOR DRYNESS 45 g 2 024 Active ergocalciferol (Vitamin D2) 1.25 MG (55257 UT) capsuleIndication s:Vitamin D deficiency TAKE 1 CAPSULE BY MOUTH ONCE A WEEK 12 capsule 3 01/08/20 25 12:09 PM EST 025 Active atorvastatin (Lipitor) 20 MG tabletIndications :Mixed hyperlipidemia TAKE 1 TABLET BY MOUTH AT BEDTIME 90 tablet 3 025 Active albuterol (2.5 MG/3ML) 0.083% nebulizer solutionIndicatio ns:Chronic obstructive pulmonary disease, unspecified (HCC) INHALE 1 AMPULE USING A NEBULIZER EVERY 4 HOURS NEEDED FOR COUGH, FOR WHEEZING OR SHORTNESS OF BREATH 90 mL 1 025 Active albuterol (Ventolin HFA) 108 (90 Base) MCG/ACT inhalerIndication s:Moderate persistent asthma without complication INHALE 2 PUFFS BY MOUTH EVERY 4 TO 6 HOURS NEEDED 18 g 11 01/29/20 25 11:03 AM EST 025 Active clotrimazole (Lotrimin) 1 % cream APPLY TO THE AFFECTED AREA(S) TWICE DAILY 30 g 2 025 Active hydroCHLOROthiazi de (HYDRODiuril) 25 MG tablet TAKE 1 TABLET BY MOUTH EVERY DAY 90 tablet 1 01/08/20 25 12:09 PM EST 025 Active amLODIPine (Norvasc) 10 MG tablet Take 1 tablet (10 mg) by mouth Once per day. 30 tablet 11 01/23/20 25 4:25 PM EST 025 2025 Active Blood Pressure kit Use as directed Dx: HTN 1 kit Active Diclofenac Sodium 1 % gelIndications:Pr imary osteoarthritis of left knee APPLY 2 GRAMS TO AFFECTED AREA(S) THREE TIMES DAILY NEEDED FOR PAIN 100 g 3 01/23/20 25 4:25 PM EST 025 Active allopurinol (Zyloprim) 300 MG tablet TAKE 1 TABLET BY MOUTH EVERY MORNING 90 tablet 3 01/01/20 25 2:11 PM EST 025 Active montelukast (Singulair) 10 MG tabletIndications :Simple chronic bronchitis (CMS/HCC) (HCC),Moderate persistent asthma without complication TAKE 1 TABLET BY MOUTH EVERY MORNING 90 tablet 1 01/08/20 25 12:09 PM EST 025 Active losartan (Cozaar) 50 MG tablet TAKE 1 TABLET BY MOUTH EVERY DAY 90 tablet 1 01/08/20 25 12:09 PM EST 025 Active lidocaine (Xylocaine) 5 % ointment APPLY TO THE AFFECTED AREA(S) 1 TO 3 TIMES PER DAY NEEDED FOR PAIN 30 g Active QUEtiapine (SEROquel) 100 MG tablet TAKE 1 TABLET BY MOUTH EVERY DAY AT BEDTIME 30 tablet 1 02/04/20 25 12:28 PM EST Active predniSONE (Deltasone) 20 MG tablet Take 1 tablet (20 mg) by mouth 2 times daily for 5 days. 10 tablet 02/05/20 25 12:18 PM EST 025 2024 Active Diclofenac Sodium 1 % gel Apply 2 g topically if needed in the morning, at noon, in the evening, and at bedtime (pain). 150 g 3 02/05/20 25 12:18 PM EST 025 Active acetaminophen (Tylenol 8 Hour) 650 MG ER tabletIndications :Arthritis TAKE 1 TABLET BY MOUTH EVERY 8 HOURS NEEDED 90 tablet 1 025 Active QUEtiapine (SEROquel) 100 MG tablet TAKE 1 TABLET BY MOUTH EVERY DAY AT BEDTIME 30 tablet 1 01/08/20 25 12:09 PM EST 025 2024 Discontinued acetaminophen (Tylenol 8 Hour) 650 MG ER tabletIndications :Arthritis TAKE 1 TABLET BY MOUTH EVERY 8 HOURS NEEDED 90 tablet 1 01/29/20 25 11:03 AM EST 025 2024 Discontinued(R eorder (will not trigger notification to Pharmacy)) Hospital, Clinic, or Other Facility Administered Medication Ordered Dose Route Frequency Start Date End Date Status ketorolac (Toradol) injection 30 mgIndications:Pain of right heel 30 mg IM Once 02/04/2025 02/04/2025 Ended Active Problems Problem Noted Date Diagnosed Date Screening mammogram for breast cancer 12/17/2024 Class 1 obesity due to exces s calories with serious comorbidity and body mass index (BMI) of 32.0 to 32.9 in adult 12/17/2024 Assessment & Plan (12/17/2024 3:54 PM EDT): Discussed re weight reduction options including exercise, life style modifications, diet. Recommended to decrease soda and sugary beverage consumption, increase protein intake with meals (at least 1 portion of protein with each meal) to assist with satiety, increase dietary fiber Recommended at least 150 min/week of moderate intensity exercise. Lateral epicondylitis of left elbow 12/17/2024 Assessment & Plan (12/17/2024 3:56 PM EDT): Refer to OT Vaccination declined 12/17/2024 Assessment & Plan (12/17/2024 3:55 PM EDT): Declined influenza, COVID, PCV and Tdap today. Advised to have vaccination at earliest convenience Ascending aorta dilatation 12/17/2024 Assessment & Plan (12/17/2024 3:57 PM EDT): Secondary to uncontrolled hypertension Given patient's S/S, repeat echo to rule out CHF, may need chest CT scan. Diastolic dysfunction without heart failure 09/2023 Overview (12/17/2024): Echo 11/06/2023 Hyperdynamic LV, EF greater than 70% + impaired relaxation filling pattern. Mild AR Mild dilated ascending aorta at 4.2 cm Normal RV systolic pressure Assessment & Plan (12/17/2024 3:48 PM EDT): She has echo 11/06/2023 with hyperdynamic ventricle We discussed importance of tight control of hypertension, she was given information for cardiology to reschedule appointment as she never show up to her appointment Follow-up BP in 3 to 4 weeks with RN, may need to add a cardioselective bblocker Assessment & Plan (11/26/2023 1:48 PM EDT): - most likely related to uncontrolled HTN , will refer to cardio, discussed with pt regarding tight control of HTN - will try to avoid beta darrick due to asthma Dyspnea on exertion 10/07/2023 Assessment & Plan (10/07/2023 5:57 PM EDT): Order echo to ro CHF Continue BP meds and inhalers, consider changing diltiazem at next RV Consider lowering gabapentin, fu with me in 2m Intrinsic eczema 10/07/2023 Assessment & Plan (10/07/2023 5:58 PM EDT): On LE Use clotrimazole bid x 2w as it seems to have some fungal colonization. Continue betamethasone cream bid Acute idiopathic gout involving toe of right blue t 01/04/2023 Assessment & Plan (01/04/2023 12:56 PM EST): Acute exacerbation. Use prednisone x 5 days, Started allopurinol 300mg Counseled regarding diet low Na, red meats, shellfish, alcohol FU uric acid 3 months and FU w/ me in 4 months Right anterior shoulder pain 09/10/2022 Assessment & Plan (12/17/2024 3:55 PM EDT): Most likely OA Continue diclofenac gel + Tylenol as needed Refer to PT and follow-up with me in 3 months Assessment & Plan (09/10/2022 1:35 PM EDT): Most likely OA, use diclofenac gel + tylenol Refer to PT and order x-ray and fu with me in 6 weeks. If not improved she may be a candidate for steroid injection Vitamin D deficiency 09/10/2022 Assessment & Plan (09/10/2022 1:34 PM EDT): start vit d supplementation x 6 months Mixed hyperlipidemia 05/18/2022 Assessment & Plan (05/18/2022 11:32 AM EDT): Uncontrolled Increase lipitor to 30 mg and FU lipids in 2-3 months We discussed re rx options. She wants to be more strict with life style modifications. Recommended moderate amount of exercise and increased consumption of fruit, vegetables, fish and high fiber foods. We discussed about avoiding consumption of highly saturated fats or trans fats. Trochanteric bursitis of right hip 04/03/2022 Assessment & Plan (05/18/2022 11:34 AM EDT): Pt agreed to be referred to PT Continue diclofenac gel + Ibuprofen or Tyenol PRN FU with me in 3 months Assessment & Plan (04/03/2022 10:37 AM EST): See above re POC for OA knees. Declines PT now, she will callback prn. FU in 2m COVID-19 01/20/2022 Cyst of breast 01/20/2022 Decreased thyroid stimulating hormone level 04/2021 Diarrhea 01/20/2022 Assessment & Plan (11/26/2023 1:48 PM EDT): - apparently related to fat meal content - advised to avoid high content fats and have fat free meals - will obtain colonoscopy report Assessment & Plan (10/07/2023 5:57 PM EDT): Recurrent, it seems to be a food intolerance/ lactose intolerance? Order labs to ro infection Keep symptom dairy and fu with me in 2m Epigastric pain 01/20/2022 Kidney lesion 01/20/2022 Melena 01/20/2022 Primary osteoarthritis of left knee 01/20/2022 Assessment & Plan (12/17/2024 3:55 PM EDT): Continue Tylenol as needed, she has a cane for ambulation Refer to PT for evaluation of gait and safety at home Rx shower chair to prevent falls in the bathroom. Follow-up with me in 3 months Assessment & Plan (09/10/2022 1:35 PM EDT): significnatly improved s/p PT reconsult PRN Assessment & Plan (05/18/2022 11:36 AM EDT): See above. Postmenopausal state 01/20/2022 Chronic back pain 11/27/2017 Chronic obstructive lung disease 11/27/2017 Assessment & Plan (09/10/2022 1:34 PM EDT): significantly improving on Advair 500 BID Continue albuterol nebulizer or inhaler PRN exacerbations FU in 6 weeks may need PCV 20 other pneumococcoal iz up to date. Assessment & Plan (05/18/2022 11:34 AM EDT): Pt is nonsmoker for 6 years now continue advair + proair PRN Hypoxemia 11/27/2017 Pulmonary emphysema 06/21/2017 Insomnia 12/20/2016 Non-toxic multinodular goiter 12/20/2016 Assessment & Plan (12/17/2024 3:54 PM EDT): Order TFTs and thyroid ultrasound Assessment & Plan (05/18/2022 11:35 AM EDT): TFTs wnl. I will order thyroid US to fu nodules FU with me in 3 months Essential hypertension 11/21/2016 Assessment & Plan (12/17/2024 3:54 PM EDT): -Uncontrolled today, reportedly better controlled at home -Discontinue diltiazem due to potential side effects including fatigue and tiredness, start amlodipine 10 mg, continue losartan + chlorthalidone and follow-up with RN in 3 weeks and me in 3 months Counseled re low salt diet/increase moderate physical activity. Check home BP BIW and prn CP/ROMO/ESPINOSA Non smoking patient. Follow up with the Nurse for blood pressure check in 3 weeks. Continue with a low sodium diet and regular exercise as tolerated. For BP < or = to 139/89 (or 129/79 for diabetic patients) continue current medication regimen and follow up with PCP in 3m. For BP > or = to 140/90 (or 130/80 for diabetic patients) increase Losartan to 100 mg once a day Follow up with the Nurse for a second blood pressure check in 2-4 weeks if BP 140-150/90+ (or 130-150/80+ for diabetic patients). Refer to CDTM for BP >150/90+. If second Nurse visit is needed: For BP < or = to 139/89 (or 129/79 for diabetic patients) continue current medication regimen and follow up with the PCP in 2m. For BP > or = to 140/90 (or 130/80 for diabetic patients) start Metoprolol 12.5mg bid Follow up with the PCP in 8 weeks. Assessment & Plan (11/26/2023 1:47 PM EDT): uncontrolled today, reportedly better controlled at home no change in meds today, continue Losartan, Diltiazem,, and hctz and f/u BP with RN in 3 weeks and with me in 3 months Counseled re low salt diet/increase moderate physical activity. Check home BP BIW and prn CP/ROMO/ESPINOSA Non smoking patient. Assessment & Plan (10/07/2023 5:56 PM EDT): Controlled. Compliant w/meds Continue losartan + hctz + Diltiazem same dose Counseled re low salt diet/increase moderate physical activity. Check home BP BIW and prn CP/ROMO/ESPINOSA Non smoking patient. FU in 2m with echo, may consider changing diltiazem Assessment & Plan (09/10/2022 1:36 PM EDT): Stage 1, uncontrolled today Counseled re low salt diet/increase moderate physical activity. Check home BP BIW and prn CP/ROMO/ESPINOSA Non smoking patient. Continue cartia XT 300mg + HCTZ 25 + Losartan 50mg FU with me in 6-7 weeks Knee pain 11/21/2016 Assessment & Plan (04/03/2022 10:37 AM EST): She has OA knees but pain seems to be exacerbated by trochanteric bursitis. She declines PT for now. Will start Meloxicam + robaxin daily for 2w and tylenol prn breakthrough pain. She will callback if sxs do not improve. Counseled re weight reductioon FU in 2m Right bundle branch block 06/27/2012 Tobacco dependence syndrome 06/27/2012 Asthma 07/13/2011 Assessment & Plan (11/26/2023 12:37 PM EDT): - doing well on Advair, no change in meds - will prescribe nebulizer PRN for asthma exacerbation - declined influenza IZ today, advised to have influenza and covid IZ at the [facility] at earliest convenience Assessment & Plan (10/07/2023 5:55 PM EDT): Unclear if ESPINOSA is related to asthma, I will obtain most recent PFTs and pulmonology notes. Continue Advair 500mg bid + Albuterol nebs or inh q6h prn SOB. She needs new tubing for her nebulizer machine, I will order one (fu with recently rx'd DME on 07/2023). Assessment & Plan (07/05/2022 1:26 PM EDT): is not optimally controlled, peak flow is low. Increase Advair to 500 mg BID, add Singulair due to potential allergic triggers continue albuterol PRN + Incruse continue albuterol PRN sob either nebulizer or inhaler with aerochamber to prevent ED visits. Will prescribe nebulizer supplies and see if medication delivery is improved with new supplies otherwise I will send a new prescription for nebulizer. FU in 6 weeks Assessment & Plan (05/18/2022 11:32 AM EDT): See COPD. Assessment & Plan (04/03/2022 10:34 AM EST): Recommended to use albuterol inh q4h x 2d then q8h x 3 more days then prn. Should use with spacer. Recons. prn Depressive disorder 07/13/2011 Stress incontinence, female 07/13/2011 Resolved Problems Problem Noted Date Diagnosed Date Resolved Date Gastroenteritis 01/20/2022 11/26/2023 Encounters Date Type Department Care Team Description 02/04/2025 11:00 AM EST Office Visit [facility] [address] [place] [phone] Geena Newton DO Pain of right heel (Primary Dx); Primary osteoarthritis of left knee; Arthritis 02/04/2025 Travel 02/04/2025 Telephone [facility] [address] [place] [phone] Polly Toribio MD Nurse Triage 01/29/2025 Refill [facility] [address] [place] [address] Polly Toribio MD 01/20/2025 Refill [facility] [address] [place] [address] Polly Toribio MD 01/05/2025 Refill [facility] [address] [place] [address] Polly Toribio MD 12/27/2024 Refill [facility] [address] [place] [address] Polly Toribio MD Simple chronic bronchitis (CMS/HCC) (HCC); Moderate persistent asthma without complication; Arthritis 12/26/2024 Refill [facility] [address] [place] [address] Polly Toribio MD Arthritis 12/22/2024 Refill [facility] [address] [place] [phone] Polly Toribio MD 12/21/2024 Telephone [facility] [address] [place] [phone] Polly Toribio MD Nurse appt 12/21/2024 Telephone [facility] [address] [place] [phone] Polly Toribio MD DME 12/17/2024 10:30 AM EDT Office Visit [facility] [address] [place] [phone] Polly Toribio MD Lateral epicondylitis of left elbow (Primary Dx); Right anterior shoulder pain; Essential hypertension; Primary osteoarthritis of left knee; Diastolic dysfunction without heart failure; Non-toxic multinodular goiter; Screening mammogram for breast cancer; Mixed hyperlipidemia; Class 1 obesity due to excess calories with serious comorbidity and body mass index (BMI) of 32.0 to 32.9 in adult; Ascending aorta dilatation (CMS/HCC); Other obesity due to excess calories; Vaccination declined; Exercise counseling; Dietary counseling 12/17/2024 Travel 12/16/2024 Telephone [facility] [address] [place] [address] Polly Toribio MD chart prep 12/16/2024 Travel 12/14/2024 Telephone [facility] [address] [place] [address] Polly Toribio MD CHART PREP 12/13/2024 Refill [facility] [address] [place], [place] [phone] Polly Toribio MD 12/10/2024 Refill [facility] [address] [place] [address] Talya Ross MD 12/04/2024 Telephone [facility] [address] [place], [place] [phone] Polly Toribio MD Chart Prep from Last 3 Months Immunizations Immunization Administration Dates Next Due Influenza, IIV3, injectable 03/02/2010 Pfizer Covid-19 Vaccine 12+ 11/08/2020, Pfizer Covid-19 Vaccine 12+ Bivalent 03/09/2022 Pneumococcal Conjugate PCV 13 11/27/2017 Pneumococcal Polysaccharide PPSV23 06/11/2017, Tdap 08/30/2010 Zoster, live 11/27/2017 Social History Tobacco Use Types Packs/Day Years Used Date Smoking Tobacco: Never Smokeless Tobacco: Never Tobacco Cessation:Counseling Given: Not Answered Alcohol Use Standard Drinks/Week Comments Never 0 [...] Orientation Straight 12/18/2021 10 :14 AM EDT Last Filed Vital Signs Vital Sign Reading Time Taken Comments Blood Pressure 100/82 02/04/2025 11:09 AM EST Pulse 83 02/04/2025 11:09 AM EST Temperature 37.1 C (98.7 F) 02/04/2025 11:09 AM EST Respiratory Rate 20 02/04/2025 11:09 AM EST Oxygen Saturation 97% 07/20/2024 11:12 AM EDT Inhaled Oxygen Concentration - - Weight 81.4 kg (179 lb 6.4 oz) 02/04/2025 11:09 AM EST Height 157.5 cm (5' 2 ) 02/04/2025 11:09 AM EST Body Mass Index 32.81 02/04/2025 11:09 AM EST Plan of Treatment Upcoming Encounters Date Type Department Care Team (Late st Contact Info) Description 03/12/2025 12:15 PM EST Office Visit [facility] [address] [place] [address] Polly Toribio MD [address] [place] [address] 03/16/2025 1:30 PM EST Office Visit [facility] [address] [place] [address] Prisca Owens, OD [address] [place] [address] Health Maintenance Due Date Last Done Comments CT Colonography 1952 Colonoscopy 1952 Colorectal Cancer Screening 1950 FIT DNA/Cologuard 1952 FIT 1950 FOBT 1950 Sigmoidoscopy 1950 Alcohol/Substance Use Screening 1964 Hepatitis C Screening 1970 RSV Patients and Patients Aged 60 years or older (1 - Risk 50-74 years 1-dose series) 2002 Zoster Vaccines (2 of 3) 01/22/2018 11/27/2017 DTaP/Tdap/Td Vaccines (2 - T d or Tdap) 08/30/2020 08/30/2010 Pneumococcal Vaccine: 50+ Years (3 of 3 - PCV20 or PCV21) 11/27/2022 11/27/2017, 06/11/2017, 05/07/2016 Mammogram 10/05/2023 10/04/2021, 11/07/2020 Depression Screening 10/06/2024 10/07/2023, 07/05/2022 COVID-19 Vaccine (4 - 2024-2 6 season) 2024 03/09/2022, 11/08/2020, 10/14/2020 Influenza Vaccine (#1) 2024 03/02/2010 SDOH Screening 08/25/2025 08/25/2024 Tobacco Screening 02/04/2026 02/04/2025 Lipid Panel 05/15/2027 05/14/2022 HIB Vaccines Aged Out No longer eligi [...] patient's age to complete this topic Meningococcal Vaccine Aged Out No joann zuleyka eligible based on patient's age to complete this topic RSV under 20 months Aged Out No longe r eligible based on patient's age to complete this topic Rotavirus Vaccines Aged Out No longer eligible based on patient's age to complete this topic Procedures Procedure Name Priority Date/Time Associated Diagnosis Comments XR FOOT 3+ VIEWS RIGHT Routine 02/04/2025 12:11 PM EST Pain of right heel LIPID PANEL WITH REFLEX TO DIRECT LDL Routine 05/14/2022 9:52 AM EDT Primary hypertension MAMMOGRAM GENERIC Routine 10/04/2021 3:0 0 PM EDT from Last 3 Months or Most Recently Relevant to Health Maintenance Results * XR Foot 3+ Views Right (02/04/2025 12:11 PM EST) Anatomical Region Laterality Modality Lower Extremities, Foot Right Radiogra phic Imaging 02/04/2025 12:1 1 PM EST Narrative 02/04/2025 12:22 PM EST [address] [address] XRay Report Signed Patient: Jaqui Segal MR#: [id number] 3 : 1950 Acct:[id number] Age/Sex: 74 / F ADM Date: 02/04/25 Loc: HO.HHCX Attending Dr: Geena Newton DO Ordering Physician: Geena Newton DO Date of Service: 02/04/25 Procedure(s): XR foot RT min 3V Accession Number(s): [id number] cc: Geena Newton DO Reason for Exam: [...] 02/04/25 1219 DD/ 1211 TD/TT: 02/04/25 1216 [employer]: Procedure Note Donotuseinterpreter, Image - 02/04/[address] [address] XRay Report Signed Patient: Diony Segal#: [id number] 3 : 3Acct:[id number] Age/Sex: 74 / FADM Date: 02/04/25 Loc: HO.HHCX Attending Dr: Geena Newton DO Ordering Physician: Geena Newton DO Date of Service: 02/04/25 Procedure(s): XR foot RT min 3V Accession Number(s): [id number] cc: Geena Newton DO Reason for Exam: [...] 02/04/25 1219 DD/ 1211 TD/TT: 02/04/25 1216 [employer]: Geena Aman DO IMG XR PROCEDURES Final Resu lt * (ABNORMAL) Lipid Panel with Reflex to Direct LDL (05/14/2022 9:52 AM EDT) Cholesterol, Total 224(H) <200 mg/dL [facility] HDL Cholesterol 51 > OR = 50 mg/dL [facility] Triglycerides 256(H) <150 mg/dL [facility] Comment: If a non-fasting specimen was collected, consider repeat triglyceride testing on a fasting specimen if clinically indicated. Bianka et al. J. of Clin. Lipidol. 2015;9:129-169. LDL Cholesterol 134(H) mg/dL (calc) [facility] Comment: Reference range: <100 Desirable range <100 mg/dL for primary prevention; <70 mg/dL for patients with CHD or diabetic patients with > or = 2 CHD risk factors. LDL-C is now calculated using the Murtaza-Lux calculation, which is a validated novel method providing better accuracy than the Friedewald equation in the estimation of LDL-C. Murtaza SS et al. MICHAEL. 2013;310(19): 6275-8873 (http://education.AnyLeaf/faq/YCJ387) Chol/HDLC Ratio 4.4 <5.0 (calc) [facility] Non-HDL Cholesterol 173(H) <130 mg/dL (calc) [facility] Comment: For patients with diabetes plus 1 major ASCVD risk factor, treating to a non-HDL-C goal of <100 mg/dL (LDL-C of <70 mg/dL) is considered a therapeutic option. 05/14/2022 9:52 AM EDT 05/14/2022 9:52 AM EDT Narrative [facility] - 05/14/2022 8:02 PM EDT FASTING:YES FASTING: YES us Polly Toribio MD LAB BLOOD ORDERABLES Fin al Result [facility] [address] [facility] [address], [facility], [place] [address] [facility] [address] [place] [address] * Mammography Report 1 (10/04/2021 3:00 PM EDT) Anatomical Region Laterality Modality Breast Bilateral Mammography 10/04/2021 3:00 PM EDT Narrative 10/04/2021 6:38 PM EDT Refer to the Notes tab for result details [facility] Procedure: Mammography Report 1 Procedure Note Provider, MD Rohini - 05/13/2022 Refer to the Notes tab for result details [facility] Procedure: Mammography Report 1 Polly Toribio MD IMG BI PROCEDURES Final Result from Last 3 Months or Most Recently Relevant to Health Maintenance Insurance [facility] OPTIONS (O D-SNP) DANIEL CLAUDIO [id number] * Guarantor: Jaqui Segal Account Type Relation to Patient Date of Phone Billing Address Personal/Family Self [address] [place] [address] * Guarantor: Jaqui Segal Account Type Relation to Patient Date of Phone Billing Address Personal/Family Self [address] [place] [address] * Guarantor: Jaqui Segal Account Type Relation to Patient Date of Phone Billing Address Personal/Family Self [address] [place] [place] [id number] Care Teams [employer] Relationship Specialty Start Date End Date Polly oTribio MD [address] [place] [address] [place] [address] PCP - General Family Medicine 10/10/18
--- OUTSIDE RECORDS SUMMARY | 2025-02-04 15:40 | XMS_ITS | Encounter Summary ---
Author Organization [facility] Address [address] [place] [address] 7 [place] [address] Care Team Providers Care Scientific Database Curator Name Role Phone Polly Toribio MD Primary Care Provider + Encounter Details Date Type Department Care Team (Late st Contact Info) Description 01/16/2022 Abstract [facility] [address] [place] [phone] ProviderRohini MD Social History Tobacco Use Types Packs/Day Years [...] Description 03/12/2025 12:15 PM EST Office Visit [facility] [address] [place] [phone] Polly Toribio MD [address] [place] [address] 03/16/2025 1:30 PM EST Office Visit [facility] [address] [place] [phone] Prisca Owens, OD [address] [place] [address] documented as of this encounter Visit Diagnoses Not on filedocumented in this encounter Care Teams Scientific Database Curator Relationship Specialty Start Date End Date Polyl Toribio MD [address] [place] [id number] PCP - General Family Medicine 10/10/18 documented as of this encounter
--- OUTSIDE RECORDS SUMMARY | 2025-02-04 15:40 | XMS_ITS | Clinical Summary ---
Author Organization [facility] it Address [id number] [place] [phone] Care Team Providers Care Train Control Technician Name Role Phone Unavailable Primary Care Provider [...] 2002 Zoster Vaccines (1 of 2) 2002 Depression Screening 02/19/2024 COVID-19 Vaccine (1 - 2024-2 6 season) 2024 Influenza Vaccine (#1) 2024 RSV Immunization Adult [...]
--- OUTSIDE RECORDS SUMMARY | 2025-02-04 15:40 | XMS_ITS | Encounter Summary ---
Author Organization [employer] Address [address] [facility] [address] [place] [address] Care Team Providers Care Call Or Contact Centre Coach Name Role Phone Polly Toribio MD Primary Care Provider + Reason for Visit * Reason Comments Med Refill Encounter Details Date Type Department Care Team (Late st Contact Info) Description 01/20/2025 Refill [facility] [address] [place], [place] [phone] Polly Toribio MD [address] [place], [place] [phone] Social History Tobacco Use Types Packs/Day Years [...] Description 03/12/2025 12:15 PM EST Office Visit [facility] [address] [place] [address] Polly Toribio MD [address] [place] [address] 03/16/2025 1:30 PM EST Office Visit [facility] [address] [place] [address] Tarka, Prisca, OD [address] [place] [address] documented as of this encounter Visit Diagnoses Not on filedocumented in this encounter Additional Health Concerns Assessment Noted Time PHQ-9 Depression Total Score: 3 07/06/19 23 12:31 PM EDT documented as of this encounter Care Teams Call Or Contact Centre Coach Relationship Specialty Start Date End Date Polly Toribio MD [address] [place] [id number] PCP - General Family Medicine 10/10/18 documented as of this encounter
== END 2025-02-04 11:50 | disposition home or self-care (01) ==
LOC: HO.HHCX 11:49
PROVIDERS: Visit Provider Family Medicine
DX: M79.671 Pain in right foot (principal)
CPT/HCPCS: 73630

== ENCOUNTER → 2025-02-04 11:49 | Outpatient (BNV) | payer OTHER, SELFPAY | PROVIDERS: Visit Provider Radiology Diagnostic Radiology | DX: M77.31 Calcaneal spur, right foot (principal) | CPT/HCPCS: 73630 ==